=== PATIENT | female | born 1955 | race Caucasian/White ===

== ENCOUNTER 2016-11-26 23:37 | Inpatient (IN) | payer MEDICARE ==
[2016-11-26] MEDS ORDERED: NORMAL SALINE 1000 ML 1,000 ML IV ONE (23:43)
[2016-11-26] MEDS ORDERED: ONDANSETRON HCL INJ/PF 4 MG/2 ML SDV IV ONE (23:43)
--- NOTE | 2016-11-27 00:08 | ER Document Report ---
ED General - General Chief Complaint: Altered Mental Status Stated Complaint: ABDOMINAL PAIN Time Seen by Provider: 11/26/16 23:43 Cannot obtain history due to: Uncooperative, Altered mental status Notes: Patient is a 61 year old female who presents with altered mental status and vomiting. Patient is apparently been admitted to this hospital on 2 separate occasions for similar presentations often due to narcotic abuse and withdrawal. Patient herself is unable to provide any meaningful history. Her significant other at the bedside states that she has been eating increasingly less over the past several days and began having vomiting today. TRAVEL OUTSIDE OF THE [place] IN LAST 30 DAYS: No - Related Data Allergies/Adverse Reactions: No Known Allergies Allergy (Verified 01/23/16 15:51) Home Medications: Current Home Medications Buspirone HCl [Buspirone HCl] 15 mg PO TID 11/27/16 [History] Fluoxetine HCl [Fluoxetine HCl] 20 mg PO DAILY 11/27/16 [History] Meloxicam [Meloxicam] 15 mg PO DAILY 11/27/16 [History] Naloxone HCl [Narcan] 1 spray IN PRN PRN 11/27/16 [History] Oxycodone HCl [Oxycontin] 40 mg PO Q12H 11/27/16 [History] Oxycodone HCl/Acetaminophen [Oxycodone-Acetaminophen 10-325] 1 each PO DAILYP PRN 11/27/16 [History] Sertraline HCl [Sertraline HCl] 50 mg PO DAILY 11/27/16 [History] Past Medical History - General Information source: Patient - Social History Smoking Status: Never Smoker Frequency of alcohol use: None Drug Abuse: Prescription drugs Lives with: Family Family History: Reviewed & Not Pertinent, Hypertension Musculoskeltal Medical History: Reports Hx Arthritis - Chronic back pain, Reports Hx Fibromyalgia Psychiatric Medical History: Reports: Hx Anxiety, Hx Depression Past Surgical History: Reports: Hx Section - x2, Hx Orthopedic Surgery - cervical fusion - Immunizations Hx Diphtheria, Pertussis, Tetanus Vaccination: Yes Review of Systems - Review of Systems -: Yes ROS unobtainable due to patient's medical condition Physical Exam - Vital signs Vitals: Temp Pulse Resp BP Pulse Ox 98.7 F 84 21 H 143/85 H 99 11/26/16 23:56 11/26/16 23:56 11/26/16 23:56 11/26/16 23:56 11/26/16 23:56 Interpretation: Normal Notes: PHYSICAL EXAMINATION: GENERAL: Disheveled, in no acute distress HEAD: Atraumatic, normocephalic. EYES: Pupils equal round and reactive to light, extraocular movements intact, sclera anicteric, conjunctiva are normal. ENT: nares patent, oropharynx clear without exudates. Dry mucous membranes. NECK: Normal range of motion, supple without lymphadenopathy LUNGS: Breath sounds clear to auscultation bilaterally and equal. No wheezes rales or rhonchi. HEART: Regular rate and rhythm without murmurs ABDOMEN: Soft, nontender, normoactive bowel sounds. No guarding, no rebound. No masses appreciated. EXTREMITIES: Normal range of motion, no pitting or edema. No cyanosis. NEUROLOGICAL: No focal neurological deficits. Moves all extremities spontaneously and on command. PSYCH: Confused, not answering questions appropriately SKIN: Warm, Dry, normal turgor, no rashes or lesions noted. Course - Re-evaluation Re-evalutation: 11/27/16 00:06 Patient presents with altered mental status likely secondary to polysubstance abuse with withdrawal. Review of patient's [place] controlled substance database shows that each month patient received 60 40 mg OxyContin tablets, 30 oxycodone 10 mg tablets, 30 zolpidem 10 mg tablets as well as 83 Xanax 1 mg tablets. This means that any given day the patient is receiving a total of 80 mg of OxyContin, 10 mg of oxycodone, 10 mg of zolpidem as well as anywhere between 2- 3 mg of alprazolam. The indication for this is apparently chronic pain and anxiety. Patient also apparently has a history of urinary tract infections with similar presentations although given the absence of fever, tachycardia, it would be unlikely the patient would have a septic picture to explain her presentation today. Will obtain basic laboratories and reassess 11/27/16 02:30 Urinalysis is unremarkable the laboratories do demonstrate signs consistent with persistent vomiting including lobe bicarb as well as a hypokalemia. Her urine specific gravity is 1.03 also consistent with significant dehydration. Patient continues to have active vomiting here in the emergency department. A CT of the head was obtained to exclude an intracranial bleed as the etiology of her presentation today and is normal. I highly suspect that a large component of patient's presentation is either due to narcotic withdrawal or withdrawal from multiple substances. However, given her persistent vomiting and laboratory abnormalities she will require admission for IV hydration and electrolyte replacement. - Vital Signs Vital signs: Temp Pulse Resp BP Pulse Ox 98.7 F 76 20 140/72 H 95 11/26/16 23:56 11/27/16 03:00 11/27/16 03:00 11/27/16 03:00 11/27/16 03:00 - Laboratory Result Diagrams: 11/27/16 00:05 11/27/16 00:05 Laboratory results interpreted by me: 11/26/16 11/27/16 11/27/16 23:53 00:05 00:05 Seg Neutrophils % 82.0 H Lymphocytes % 11.0 L Sodium 145.5 H Potassium 2.9 L* Chloride 116 H Carbon Dioxide 15 L Creatinine 0.43 L Glucose 112 H Calcium 7.6 L Albumin 3.3 L Urine Protein 100 H Urine Ketones TRACE H Urine Blood SMALL H Urine Urobilinogen 2.0 H - Diagnostic Test Radiology reviewed: Reports reviewed Discharge - Discharge Clinical Impression: Benzodiazepine dependence, continuous, Opiate dependence, continuous Condition: Fair Disposition: ADMITTED INPATIENT Admitting Provider: [facility] Unit Admitted: [facility]
[2016-11-27 00:11] LABS: APPEARANCE,URINE CLOUDY; BILIRUBIN,URINE NEGATIVE (NEGATIVE); GLUCOSE, URINE NEGATIVE (NEGATIVE); KETONES,URINE TRACE mg/dL (NEGATIVE); LEUKOCYTE ESTERASE,URINE NEGATIVE (NEGATIVE); NITRITE,URINE NEGATIVE (NEGATIVE); PROTEIN,URINE 100 mg/dL (NEGATIVE)
[2016-11-27 00:18] LABS: ABSOLUTE LYMPHOCYTES (AUTO) 0.8 10^3/uL (0.5-4.7); ABSOLUTE MONOCYTES (AUTO) 0.4 10^3/uL (0.1-1.4); ABSOLUTE NEUT (AUTO) 5.6 10^3/uL (1.7-8.2); BASOPHILS % (AUTO) 0.6 % (0-2); HEMATOCRIT 44.5 % (36.0-47.0); HEMOGLOBIN 14.7 g/dL (12.0-15.5); HGB HCT DIFFERENCE -0.4; MEAN CORPUSCULAR HGB CONC 33.1 g/dL (32.0-36.0); MEAN CORPUSCULAR VOLUME 85 fl (80-97); MONOCYTES % (AUTO) 6.4 % (3-13); RED BLOOD COUNT 5.26 10^6/uL (3.72-5.28); RED CELL DISTRIBUTION WIDTH 13.8 % (11.5-14.0); WHITE BLOOD COUNT 6.8 10^3/uL (4.0-10.5)
[2016-11-27 00:50] LABS: ALANINE AMINOTRANSFERASE 35 U/L (9-52); ALBUMIN 3.3 g/dL (3.5-5.0); ALKALINE PHOSPHATASE 73 U/L (38-126); ANION GAP 15 (5-19); ASPARTATE AMINO TRANSFERASE 29 U/L (14-36); BILIRUBIN,DIRECT 0.3 mg/dL (0.0-0.4); BILIRUBIN,TOTAL 0.5 mg/dL (0.2-1.3); BLOOD UREA NITROGEN 15 mg/dL (7-20); CALCIUM 7.6 mg/dL (8.4-10.2); CARBON DIOXIDE 15 mmol/L (22-30); CHLORIDE 116 mmol/L (98-107); CREATININE RESULT 0.43 mg/dL (0.52-1.25); GLUCOSE 112 mg/dL (75-110); LIPASE 81.6 U/L (23-300); SODIUM 145.5 mmol/L (137-145); TOTAL PROTEIN 6.3 g/dL (6.3-8.2)
[2016-11-27 00:56] LABS: POTASSIUM 2.9 mmol/L (3.6-5.0)
--- NOTE | 2016-11-27 01:34 | RADIOLOGY REPORT (SQ) ---
EXAM DESCRIPTION: CT HEAD WITHOUT COMPLETED DATE/TIME: 11/27/2016 1:08 am REASON FOR STUDY: ams COMPARISON: None. TECHNIQUE: Axial images acquired through the brain without intravenous contrast. Images reviewed wi th bone, brain and subdural windows. Images stored on PACS. All CT scanners at this facility use dose modulation, iterative reconstruction, and/or weight based d osing when appropriate to reduce radiation dose to as low as reasonably achievable (ALARA). [facility]: Dose Right [facility]: CareDose [facility]: Dose Right [facility]: Teradose 4D [facility]: [employer] RADIATION DOSE: Up-to-date CT equipment and radiation dose reduction techniques were employed. CTDIv ol: 64.6 mGy. DLP: 1163 mGy-cm. mGy. LIMITATIONS: Motion artifact. FINDINGS: VENTRICLES: Normal size and contour. CEREBRUM: No masses. No hemorrhage. No midline shift. Normal johnson/white matter differentiation. N o evidence for acute infarction. CEREBELLUM: No masses. No hemorrhage. No alteration of density. No evidence for acute infarction. EXTRAAXIAL SPACES: No fluid collections. No masses. ORBITS AND GLOBE: No intra- or extraconal masses. Normal contour of globe without masses. CALVARIUM: No fracture. PARANASAL SINUSES: No fluid or mucosal thickening. SOFT TISSUES: No mass or hematoma. OTHER: No other significant finding. IMPRESSION: NORMAL BRAIN CT WITHOUT CONTRAST. TECHNICAL DOCUMENTATION: JOB ID: [id number] Quality ID # [id number]: Final reports with documentation of one or more dose reduction techniques (e.g., Au tomated exposure control, adjustment of the mA and/or kV according to patient size, use of iterative reconstruction technique) 2010 [employer]- All Rights Reserved
[2016-11-27] MEDS ORDERED: POTASSI CL 20 MEQ/50 ML RIDER 50 ML IV ONE (01:35)
[2016-11-27] MEDS: MAGNESIUM SULFATE/D5W 100 ML IV SCH ×2 (01:56→04:01)
[2016-11-27] MEDS ORDERED: ONDANSETRON HCL INJ/PF 4 MG/2 ML SDV IV ONE ×2 (02:17→12:30)
[2016-11-27] MEDS ORDERED: LORAZEPAM INJ 2 MG/1 ML VIAL IV ONE (03:04)
[2016-11-27 03:12] LABS: ADD ON TESTING BLD IN LAB ACKNOWLEDGE
[2016-11-27 03:23] LABS: MAGNESIUM 1.8 mg/dL (1.6-2.3)
[2016-11-27 03:26] LABS: ALCOHOL < 10 mg/dL (NONE DETECTED)
[2016-11-27 03:38] LABS: VENOUS BLOOD BASE EXCESS -1.1 mmol/L; VENOUS BLOOD HCO3 22.4 mmol/L (20-32); VENOUS BLOOD PCO2 33.7 mmHg (35-63); VENOUS BLOOD PH 7.44 (7.30-7.42)
[2016-11-27] MEDS ORDERED: POTASSI CL 20 MEQ/50 ML RIDER 50 ML IV SCH (05:00)
[2016-11-27] MEDS ORDERED: 1/2 NORMAL SALINE 1,000 ML IV PRN (05:46)
[2016-11-27 05:53] LABS: URINE BARBITURATES SCREEN NEGATIVE; URINE METHADONE SCREEN NEGATIVE; URINE OPIATES LOW UNCONFIRMED POSITIVE; URINE PHENCYCLIDINE SCREEN NEGATIVE
[2016-11-27] MEDS ORDERED: RINGERS SOLUTION,LACTATED 1,000 ML IV ONE (06:15)
[2016-11-27 06:26] LABS: ANION GAP 13 (5-19); BLOOD UREA NITROGEN 17 mg/dL (7-20); CALCIUM 9.2 mg/dL (8.4-10.2); CARBON DIOXIDE 19 mmol/L (22-30); CHLORIDE 110 mmol/L (98-107); GLUCOSE 118 mg/dL (75-110)
[2016-11-27 06:33] LABS: POTASSIUM 4.3 mmol/L (3.6-5.0)
[2016-11-27 06:34] LABS: ADD ON TESTING BLD IN LAB ACKNOWLEDGE
[2016-11-27] MEDS ORDERED: GLUCAGON,HUMAN RECOMB 1 MG INJ SUBCUT PRN (06:43)
[2016-11-27] MEDS ORDERED: DEXTROSE 40% GEL 15 GM TUBE PO PRN ×2 (06:43)
[2016-11-27] MEDS ORDERED: DEXTROSE 50%-WATER 25 GM/50 ML DISP.SYRIN IV PRN ×2 (06:43)
[2016-11-27 06:44] LABS: CREATINE KINASE 140 U/L (30-135)
[2016-11-27] MEDS ORDERED: ACYCLOVIR SODIUM INJ/PF 500 MG/10 ML SDV IV PRN (06:45)
[2016-11-27] MEDS ORDERED: VANCOMYCIN HCL 0 MG in DEXTROSE 5%-WATER 250 ML IV NR (06:45)
[2016-11-27] MEDS ORDERED: RIFAMPIN INJ 600 MG VIAL IV PRN (06:45)
[2016-11-27] MEDS ORDERED: AMPICILLIN SOD INJ 2 GM VIAL IV PRN ×2 (06:48→06:57)
[2016-11-27] MEDS ORDERED: ACETAMINOPHEN 650 MG SUPP.RECT PR PRN (06:49)
[2016-11-27 06:59] LABS: PROTHROMBIN TIME 13.6 SEC (11.4-15.4)
[2016-11-27 07:00] LABS: PARTIAL THROMBOPLASTIN TIME 26.6 SEC (23.5-35.8)
[2016-11-27] MEDS ORDERED: DEXAMETHASONE SOD PHOS INJ 10 MG/1 ML VIAL IV ONE (07:00)
[2016-11-27] MEDS ORDERED: VANCOMYCIN HCL INJ 1000 MG VIAL IV PRN (07:08)
[2016-11-27] MEDS ORDERED: VANCOMYCIN HCL 1,750 MG in DEXTROSE 5%-WATER 500 ML IV ONE (08:00)
[2016-11-27] MEDS: PROMETHAZINE HCL INJ 25 MG/1 ML VIAL IV PRN ×3 (09:53→20:29)
[2016-11-27] MEDS: HYDROMORPHONE HCL INJ/PF 2 MG/ML AMPULE IV PRN ×3 (09:54→18:01)
[2016-11-27] MEDS ORDERED: FLUOXETINE HCL 20 MG CAPSULE PO SCH (10:00)
[2016-11-27] MEDS ORDERED: RIFAMPIN 600 MG in NORMAL SALINE 500 ML IV SCH (10:00)
[2016-11-27] MEDS ORDERED: AMPICILLIN SODIUM 2 GM in NORMAL SALINE 100 ML IV SCH (10:00)
[2016-11-27] MEDS ORDERED: SERTRALINE HCL 50 MG TABLET PO SCH (10:00)
[2016-11-27] MEDS ORDERED: ACYCLOVIR SODIUM IV SCH (10:00)
[2016-11-27] MEDS ORDERED: NORMAL SALINE IV SCH (10:00)
--- NOTE | 2016-11-27 10:08 | PDOC H&P ---
History of Present Illness Admission Date/PCP: 11/27/16 06:43 Patient complains of: ams, n/v History of Present Illness: TELLO KAHN is a 61 year old female with chronic pain syndrome, requiring chronic opioid use, along with chronic benzodiazepine use, who presents to the emergency room for evaluation of above complaints. Patient has been discussed with emergency room physician who evaluated the patient. Patient is globally disoriented and is able to provide no history whatsoever in terms of acute or chronic events, review of systems, personal habits, family history, etc. No family present. A "special" male friend is present at her side, but can provide little information about acute events, and virtually nothing about chronic health issues. Old inpatient records are reviewed. Since Tuesday, patient has noted persistent nausea, along with frequently falling asleep. Poor p.o. intake over this time span. Over the last 24 hours or so, as best can be determined, she has had intermittent episodes of vomiting. Possibly diarrhea. ER physician notes related to her prescription drug use, and its suspected amounts, reviewed. No further information available this point in time. Was seen in consultation in the emergency room on 05/26/2016 for evaluation of nausea and vomiting. Opiate withdrawal was felt at least partly responsible for her symptoms. Admission was not felt warranted. Consult has been reviewed. Hospitalized 01/25 through 01/27/2016 with final diagnoses including urinary tract infection, intractable nausea and vomiting, chronic pain syndrome requiring chronic opioid use, and chronic anxiolytic use. History and physical and discharge summary have been reviewed. Laboratory results are listed in [facility] and are reviewed. X-ray summary results are listed below, with full report(s) reviewed. . EKG reviewed. Social history/personal habits: Patient cannot provide any information available at this point in time. No known drug allergies. Home medications initially autopopulated into [employer] may not accurately reflect patient's true medications, dosages, and/or frequencies. tar processing technician to reconcile medications. Unfortunately, Patient cannot provide any information related to medications/ dosages/frequencies. REVIEW OF SYSTEMS: See history and present illness. No further information available this point in time. PHYSICAL EXAMINATION: 5 feet 7 inches tall. 84.2 kg. BMI 29.1 kg/m. Blood pressure 149/80. Pulse 93 and regular. 96% saturation on room air. Respirations are 21 and unlabored. Temperature 98.1. Slightly overweight otherwise well-nourished well-developed though chronically ill-appearing female who appears a number of years older than her stated age. Somnolent. Does awaken slightly when spoken to. Denies pain. Intermittent brief episodes of dry heaves. No actual emesis. Occasional moaning, but once again denies pain. Maintaining airway well. Female emergency room nurse Eleanor is present. Male "special friend" is present. Skin is warm and dry. No grossly obvious evidence of rash in areas of skin examined. No subcutaneous nodules palpated. ENT: Hearing grossly normal to normal conversation. No mckeon sign. Eyes: No scleral icterus. Pupils equal and reactive to light at 7-8 mm. [place] conjunctivae. No raccoon eyes. Neck is nontender to palpation. Midline trachea. No palpable thyroid nodule mass enlargement or tenderness. Lymphatic: No palpable cervical or clavicular nodes. Neck and lymphatic exams limited by patient body habitus. Psychiatric: Cannot be adequately evaluated due to her current status. See above comments. Lungs: Auscultation reveals clear and equal breath sounds bilaterally. No use of accessory respiratory muscles. Cardiovascular: Heart regular rate and rhythm, without gallop murmur or rub. No carotid or abdominal aortic bruits. No ankle or pedal edema. Faintly palpable dorsalis pedis pulses. Abdomen:soft slightly distended with occasional bowel sounds. Barely detectable discomfort on palpation of the abdomen; certainly no evidence of guarding or peritoneal signs. Unable to adequately evaluate abdomen for masses or organomegaly due to distention. Extremities: Hands and feet are warm and dry. No calf tenderness to compression. No grossly obvious visual evidence of calf swelling. Gentle manipulation of upper and lower extremities fails to reveal any obvious evidence of injury or instability to involved major joints, although lower extremity exam, in terms of range of motion, somewhat limited due to slight bilateral symmetric muscle rigidity. Certainly no evidence of "lead pipe" rigidity. Neurologic: Cranial Nerves and light touch intact cannot be adequately evaluated due to her current status.. Patellar reflexes brisk and symmetric. Absent Babinski. Brisk bilateral symmetric ankle clonus. No nystagmus. Hand sugar coating hand 4/5 and symmetric. Does not seem to understand request for examination of biceps and triceps function. Certainly no evidence of upper extremity flaccidity. Past Medical History Past Medical History: Information available only from old records; patient not able to provide any information. Musculoskeltal Medical History: Reports: Arthritis - Chronic back pain, Fibromyalgia Psychiatric Medical History: Reports: Depression Past Surgical History Past Surgical History: Patient unable to provide any information herself. Past Surgical History: Reports: Section - x2, Orthopedic Surgery - cervical fusion Social History Information Source: Friend, Emergency Med Personnel, [facility] Records Lives with: Family Smoking Status: Never Smoker Frequency of Alcohol Use: None Hx Recreational Drug Use: No - Uncertain at this point in time. Drugs: None - Uncertain at this point in time. Hx Prescription Drug Abuse: Yes - Advance Directive Resuscitation Status: Full Code Surrogate healthcare decision maker:: Uncertain at this point in time. Family History Family History: Reviewed & Not Pertinent, Hypertension Parental Family History Reviewed: No - Patient cannot provide any information. Children Family History Reviewed: No - Patient cannot provide any information. Sibling(s) Family History Reviewed.: No - Patient cannot provide any information. Medication/Allergy Home Medications: RX: Gabapentin 800 mg PO Q6 05/26/16 RX: Zolpidem Tartrate 10 mg PO QHS 05/26/16 RX: Buspirone HCl 15 mg PO TID 11/27/16 RX: Naloxone HCl [Narcan] 1 spray IN PRN PRN 11/27/16 RX: Lorazepam [Ativan 1 mg Tablet] 1 mg PO Q8HP PRN #10 tablet 12/02/16 RX: Oxycodone HCl [Oxy-Ir 5 mg Tablet] 5 mg PO Q4HP PRN #10 tablet 12/02/16 RX: Oxycodone HCl [Oxycontin Sr 10 mg Tablet] 20 mg PO Q12 #10 tab.sr.12h RX: Potassium Chloride [Klor-Con 10 Meq Tablet.sa] 20 meq PO DAILY #7 tablet.sa 12/02/16 Allergies/Adverse Reactions: No Known Allergies Allergy (Verified 01/23/16 15:51) Physical Exam Vital Signs: Temp Pulse Resp BP Pulse Ox 98.1 F 84 15 148/77 H 96 11/27/16 05:53 11/27/16 06:00 11/27/16 09:01 11/27/16 09:00 11/27/16 09:01 Intake & Output 11/26/16 11/27/16 11/28/16 00:59 00:59 00:59 Output Total 600 Balance -600 Results Impressions: Head CT 11/27/16 00:54 IMPRESSION: NORMAL BRAIN CT WITHOUT CONTRAST. Assessment & Plan - Diagnosis (1) Acidosis Is this a current diagnosis for this admission?: YesPlan: Likely due to an element of dehydration. IV fluids. Follow-up chemistry. (2) Acute encephalopathy Is this a current diagnosis for this admission?: YesPlan: Uncertain specific etiology at this point in time, but suspect at least an element of prescription medication withdrawal. At 6:15 AM morning of November,, extensive telephone conversation with Dr. Carreno, on-call underground electrician at [place] poison control. Patient discussed in detail. Dr. Denny felt her overall clinical picture was not completely consistent with medication withdrawal or serotonin syndrome, and even less likely neuroleptic malignant syndrome. He agreed with treatment so far. Concern for an infectious component involving the central nervous system. Lumbar puncture recommended. Empiric antibiotic regimen along with dexamethasone instituted. Due to her overall clinical picture, and uncertainty as to the exact etiology of this picture, will admit to intensive care unit. Knee high SCDs for DVT prophylaxis; with plans for lumbar puncture, will forego Lovenox or heparin at this point in time. Patient discussed in detail with day hospitalist team. Time spent in evaluation and management of patient: 85 critical-care minutes. (3) Benzodiazepine dependence, continuous Is this a current diagnosis for this admission?: Yes (4) Opiate dependence, continuous Is this a current diagnosis for this admission?: Yes (5) Nausea & vomiting Qualifiers: Vomiting type: unspecified Vomiting Intractability: non-intractable Qualified Code(s): R11.2 - Nausea with vomiting, unspecified Is this a current diagnosis for this admission?: Yes - Inpatient Certification Based on my medical assessment, after consideration of the patient's comorbidities, presenting symptoms, or acuity I expect that the services needed warrant INPATIENT care.: Yes I certify that my determination is in accordance with my understanding of Medicare's requirements for reasonable and necessary INPATIENT services [42 CFR 412.3e].: Yes Medical Necessity: Need Close Monitoring Due to Risk of Patient Decompensation, Need For IV Fluids, Need For Continuous Telemetry Monitoring, Risk of Diagnosis Which Will Require Inpatient Eval/Care/Monitoring Post Hospital Care: D/C or Transfer Summary
[2016-11-27] MEDS: CEFTRIAXONE 2 GM/D5W RTU 2 GM/50 ML RTUPB IV SCH (10:50)
[2016-11-27] MEDS ORDERED: DEXAMETHASONE SOD PHOS INJ 10 MG/1 ML VIAL IV SCH (12:00)
[2016-11-27] MEDS: NORMAL SALINE 1000 ML 1,000 ML IV PRN ×2 (12:04→23:16)
[2016-11-27] MEDS ORDERED: DIAZEPAM INJ 10 MG/2 ML DISP.SYRIN IV ONE (12:30)
[2016-11-27] MEDS ORDERED: METOCLOPRAMIDE HCL INJ/PF 10 MG/2 ML SDV IV ONE (12:30)
[2016-11-27] MEDS: ONDANSETRON HCL INJ/PF 4 MG/2 ML SDV IV SCH ×3 (12:48→23:15)
--- NOTE | 2016-11-27 13:42 | EKG REPORT ---
SEVERITY:- BORDERLINE ECG - SINUS RHYTHM BORDERLINE T ABNORMALITIES, ANTERIOR LEADS : Confirmed by: Mamadou Dupree 27-Nov-2016 13:41:22
[2016-11-27] MEDS: DIAZEPAM INJ 10 MG/2 ML DISP.SYRIN IV SCH ×2 (15:00→23:15)
[2016-11-27] MEDS: NORMAL SALINE IV SCH ×2 (15:02→23:15)
[2016-11-27] MEDS: ACYCLOVIR SODIUM IV SCH ×2 (15:02→23:15)
--- NOTE | 2016-11-27 16:15 | RADIOLOGY REPORT (SQ) ---
EXAM DESCRIPTION: MRI HEAD COMBO COMPLETED DATE/TIME: 11/27/2016 2:50 pm REASON FOR STUDY: neurologic chgs; eval for CVA or mass/encephalitis COMPARISON: CT from earlier. This exam qualifies as a separate session for this patient's imaging care and occurred 2 to 3 hours after the previous session of cross-sectional imaging care. TECHNIQUE: Multiplanar imaging includes noncontrasted T1, T2, FLAIR, diffusion with ADC map and post gadolinium contrast T1 sequences. Images stored on PACS. CONTRAST TYPE AND DOSE: 15 mL Multihance. RENAL FUNCTION: GFR > 60. LIMITATIONS: None. FINDINGS: ANATOMY: No anomalies. Normal vascular flow voids. Pituitary fossa normal. CSF SPACES: Normal in size and contour. No hemorrhage. CEREBRUM: Sulci and gyri normal in size and contour. Normal white matter signal on FLAIR imaging. No evidence of hemorrhage, mass, or extraaxial fluid collection. No abnormal enhancement post contrast. POSTERIOR FOSSA: No signal alteration. No hemorrhage. No edema, masses, or mass effect. Internal earnestine tory canals, cerebellopontine angles, mastoids normal. No enhancing lesions. No abnormal enhancement post contrast. DIFFUSION IMAGING: Negative for acute or subacute infarction. ORBITS: No masses. Globes normal. PARANASAL SINUSES: No fluid levels. Mucosa normal. OTHER: No other significant finding. IMPRESSION: NORMAL MRI OF THE BRAIN WITHOUT AND WITH INTRAVENOUS GADOLINIUM CONTRAST. TECHNICAL DOCUMENTATION: JOB ID: [id number] [employer]- All Rights Reserved
[2016-11-27] MEDS: METOCLOPRAMIDE HCL INJ/PF 10 MG/2 ML SDV IV SCH ×2 (18:02→23:15)
[2016-11-27] MEDS: VANCOMYCIN HCL 1,250 MG in DEXTROSE 5%-WATER 250 ML IV SCH (23:14)
[2016-11-27] MEDS ORDERED: CEFTRIAXONE 2 GM/D5W RTU 2 GM/50 ML RTUPB IV ONE (23:42)
[2016-11-28] MEDS: PROMETHAZINE HCL INJ 25 MG/1 ML VIAL IV PRN ×6 (00:21→23:56)
[2016-11-28] MEDS: CEFTRIAXONE 2 GM/D5W RTU 2 GM/50 ML RTUPB IV SCH (00:43)
[2016-11-28] MEDS: HYDROMORPHONE HCL INJ/PF 2 MG/ML AMPULE IV PRN ×4 (02:42→19:45)
[2016-11-28 05:12] LABS: ABSOLUTE BASOPHILS # (AUTO) 0.1 10^3/uL (0.0-0.2); ABSOLUTE LYMPHOCYTES (AUTO) 1.1 10^3/uL (0.5-4.7); ABSOLUTE MONOCYTES (AUTO) 1.1 10^3/uL (0.1-1.4); ABSOLUTE NEUT (AUTO) 8.5 10^3/uL (1.7-8.2); BASOPHILS % (AUTO) 0.8 % (0-2); HEMATOCRIT 39.9 % (36.0-47.0); HEMOGLOBIN 13.2 g/dL (12.0-15.5); HGB HCT DIFFERENCE -0.3; LYMPHOCYTES % (AUTO) 10.5 % (13-45); MEAN CORPUSCULAR HGB CONC 33.1 g/dL (32.0-36.0); MEAN CORPUSCULAR VOLUME 85 fl (80-97); MONOCYTES % (AUTO) 10.2 % (3-13); RED BLOOD COUNT 4.72 10^6/uL (3.72-5.28); RED CELL DISTRIBUTION WIDTH 14.3 % (11.5-14.0); SEGMENTED NEUTROPHILS % (AUTO) 78.5 % (42-78); WHITE BLOOD COUNT 10.8 10^3/uL (4.0-10.5)
[2016-11-28] MEDS: NORMAL SALINE IV SCH ×2 (05:17→14:11)
[2016-11-28] MEDS: ACYCLOVIR SODIUM IV SCH ×2 (05:17→14:11)
[2016-11-28] MEDS: DIAZEPAM INJ 10 MG/2 ML DISP.SYRIN IV SCH ×3 (05:17→22:31)
[2016-11-28] MEDS: METOCLOPRAMIDE HCL INJ/PF 10 MG/2 ML SDV IV SCH (05:18)
[2016-11-28] MEDS: ONDANSETRON HCL INJ/PF 4 MG/2 ML SDV IV SCH ×3 (05:18→22:31)
[2016-11-28 05:29] LABS: ALANINE AMINOTRANSFERASE 39 U/L (9-52); ALBUMIN 3.9 g/dL (3.5-5.0); ALKALINE PHOSPHATASE 78 U/L (38-126); ANION GAP 11 (5-19); ASPARTATE AMINO TRANSFERASE 30 U/L (14-36); BILIRUBIN,DIRECT 0.3 mg/dL (0.0-0.4); BILIRUBIN,TOTAL 0.5 mg/dL (0.2-1.3); BLOOD UREA NITROGEN 13 mg/dL (7-20); CALCIUM 9.1 mg/dL (8.4-10.2); CARBON DIOXIDE 21 mmol/L (22-30); CHLORIDE 109 mmol/L (98-107); GLUCOSE 105 mg/dL (75-110); POTASSIUM 3.8 mmol/L (3.6-5.0); SODIUM 141.2 mmol/L (137-145); TOTAL PROTEIN 6.8 g/dL (6.3-8.2)
[2016-11-28] MEDS ORDERED: PROCHLORPERAZINE MALEATE 10 MG TABLET PO ONE (09:30)
[2016-11-28] MEDS ORDERED: PROMETHAZINE HCL 25 MG SUPP.RECT PR ONE (09:30)
[2016-11-28] MEDS: VANCOMYCIN HCL 1,250 MG in DEXTROSE 5%-WATER 250 ML IV SCH (09:33)
[2016-11-28] MEDS ORDERED: ONDANSETRON HCL INJ/PF 4 MG/2 ML SDV IV ONE (10:00)
[2016-11-28] MEDS ORDERED: CEFTRIAXONE 2 GM/D5W RTU 2 GM/50 ML RTUPB IV SCH ×2 (10:00→13:00)
[2016-11-28 12:03] LABS: APPEARANCE ALL TUBES CLEAR
--- NOTE | 2016-11-28 12:05 | RADIOLOGY REPORT (SQ) ---
EXAM DESCRIPTION: LUMBAR PUNCTURE COMPLETED DATE/TIME: 11/28/2016 11:55 am REASON FOR STUDY: neurologic chg, poss meningitis, encephalitis COMPARISON: None. FLUOROSCOPY TIME: 14 seconds 1 images saved to PACS. TECHNIQUE: Fluoroscopic guided lumbar puncture. LIMITATIONS: None. PROCEDURE: After written consent and assessment were obtained, the patient was brought into the fluo roscopy room and placed prone on the table. The patient's lower back was prepped in a sterile fashio n and an entry site was selected under live fluoroscopic guidance. The entry site was anesthetized wi th 1% lidocaine. A 22 gauge needle was advanced through the skin and into the thecal sac at the level of L3-L4. After approximately 7 ml was drained, the needle was removed and a sterile bandage was gwendolny izabela of the site. Specimens were sent to the lab for testing. A fluoroscopic spot image was saved to PACS confirming level access. FINDINGS: Clear CSF IMPRESSION: Lumbar puncture under fluoroscopy. No immediate complication. COMMENT: Patient medication list reviewed: Yes- Quality ID# [id number]:Eligible professional attests to doc umenting in the medical record they obtained, updated, or reviewed the patient's current medications. . Quality ID 145: Final reports for procedures using fluoroscopy that document radiation exposure faiza danii, or exposure time and number of fluorographic images (if radiation exposure indices are not avail able) TECHNICAL DOCUMENTATION: JOB ID: [id number] [employer]- All Rights Reserved
[2016-11-28 12:19] LABS: GLUCOSE,CSF 64 mg/dL (40-70)
[2016-11-28 12:20] LABS: CSF CULTURED REQUIRED CSF CULTURE ORDERED (CSFY); H. INFLUENZAE TYPE B AG NEGATIVE (NEGATIVE); S. PNEUMONIAE AG NEGATIVE (NEGATIVE); STREP. GROUP B AG NEGATIVE (NEGATIVE)
[2016-11-28 12:37] LABS: RBC SIDE 1 5
[2016-11-28 12:38] LABS: RBC AVERAGE 4.5; RBC DILUENT USED NONE USED; RBC DILUTION FACTOR 1; RBC SIDE 2 4; TOTAL RBC SQUARES COUNTED 225
[2016-11-28 12:39] LABS: WHITE BLOOD CELL,CSF 3 /uL (0-5)
--- NOTE | 2016-11-28 13:42 | PDOC PROGRESS REPORT ---
Subjective Progress Note for:: 11/28/16 Subjective:: reason for visit: f/u serotonin syndrome, vomiting, encephalopathy hospital course: per H&P "TELLO KAHN is a 61 year old female with chronic pain syndrome, requiring chronic opioid use, along with chronic benzodiazepine use, who presents to the emergency room for evaluation of above complaints. Patient is globally disoriented and is able to provide no history whatsoever in terms of acute or chronic events, review of systems, personal habits, family history, etc. No family present. A "special" male friend is present at her side, but can provide little information about acute events, and virtually nothing about chronic health issues. Old inpatient records are reviewed. Since Tuesday, patient is noted persistent nausea, along with frequently falling asleep. Poor p.o. intake over this time span. Over the last 24 hours or so, as best can be determined, she has had intermittent episodes of vomiting. Possibly diarrhea. ER physician notes related to her prescription drug use, and its suspected amounts, reviewed. No further information available this point in time. Was seen in consultation in the emergency room on 05/26/2016 for evaluation of nausea and vomiting. Opiate withdrawal was felt at least partly responsible for her symptoms. Admission was not felt warranted. Consult has been reviewed. Hospitalized 01/25 through 01/27/2016 with final diagnoses including urinary tract infection, intractable nausea and vomiting, chronic pain syndrome requiring chronic opioid use, and chronic anxiolytic use. History and physical and discharge summary have been reviewed." I strongly suspect serotonin syndrome on the basis of dual SSRI use at home and clinical findings of lower ext clonus, muscle rigidity, hyperreflexia, diaphoresis, mental status change and severe projectile vomiting. MRI brain is clean of pathologic process. Labs are unremarkable aside from mild metabolic acidosis. LP performed and shows only a couple WBCs, glucose normal, total protein slightly high at 66 and Gm stain/culture still pending. her retching and vomiting are the most prominent and disturbing symptom at present, refractory to multidrug regimen. she is more alert and talkative and more appropriate for staff and family at bedside. ROS: difficult to ascertain due to persistent vomiting and retching during my exam. she denies chest pain, BECKER, N/T but c/o abdominal wall pain, weakness, myalgias and confusion. all systems reviewed, see above, remaining systems negative. Physical Exam Vital Signs: Temp Pulse Resp BP Pulse Ox 99.1 F 70 20 127/70 H 95 11/28/16 08:43 11/28/16 08:43 11/28/16 08:43 11/28/16 08:43 11/28/16 08:43 Intake & Output 11/27/16 11/28/16 11/29/16 06:59 06:59 06:59 Intake Total 2375 Output Total 2625 Balance -250 Weight 93.2 kg General appearance: PRESENT: mild distress, obese, well-developed, well- nourished Head exam: PRESENT: atraumatic, normocephalic Eye exam: PRESENT: EOMI. ABSENT: conjunctival injection, nystagmus, scleral icterus Neck exam: PRESENT: full ROM. ABSENT: meningismus, tenderness, tracheal deviation Respiratory exam: PRESENT: clear to auscultation ana. ABSENT: accessory muscle use, unlabored Cardiovascular exam: PRESENT: RRR. ABSENT: systolic murmur, tachycardia Pulses: PRESENT: normal radial pulses, normal dorsalis pedis pul GI/Abdominal exam: PRESENT: normal bowel sounds, soft, tenderness - wall tender to palpation and worse with movement Extremities exam: ABSENT: calf tenderness, pedal edema Musculoskeletal exam: PRESENT: full ROM, normal inspection Neurological exam: PRESENT: alert, awake, oriented to person, oriented to place , other - profound clonus at bilat ankles. ABSENT: oriented to time, oriented to situation, reflexes normal - hyperreflexia patella with thigh fasciculations after testing Psychiatric exam: PRESENT: anxious, appropriate affect, normal mood Focused psych exam: ABSENT: pressured speech, psychomotor agitation Skin exam: PRESENT: warm - moist and pale Results Laboratory Results: 11/28/16 04:36 11/28/16 04:36 11/28/16 11/28/16 11/28/16 04:36 04:36 11:08 WBC 10.8 H RBC 4.72 Hgb 13.2 Hct 39.9 MCV 85 MCH 28.0 MCHC 33.1 RDW 14.3 H Plt Count 253 Seg Neutrophils % 78.5 H Lymphocytes % 10.5 L Monocytes % 10.2 Eosinophils % 0.0 Basophils % 0.8 Absolute Neutrophils 8.5 H Absolute Lymphocytes 1.1 Absolute Monocytes 1.1 Absolute Eosinophils 0.0 Absolute Basophils 0.1 Sodium 141.2 Potassium 3.8 Chloride 109 H Carbon Dioxide 21 L Anion Gap 11 BUN 13 Creatinine 0.70 Est GFR ( Amer) > 60 Est GFR (Non-Af Amer) > 60 Glucose 105 Calcium 9.1 Total Bilirubin 0.5 AST 30 ALT 39 Alkaline Phosphatase 78 Total Protein 6.8 Albumin 3.9 Fluid Tube Number 3 CSF Volume 6.1 CSF Appearance CLEAR CSF Color COLORLESS CSF WBC 3 CSF RBC 5 CSF Comment CSF Glucose CSF Total Protein 11/28/16 11/28/16 11:08 11:08 WBC RBC Hgb Hct MCV MCH MCHC RDW Plt Count Seg Neutrophils % Lymphocytes % Monocytes % Eosinophils % Basophils % Absolute Neutrophils Absolute Lymphocytes Absolute Monocytes Absolute Eosinophils Absolute Basophils Sodium Potassium Chloride Carbon Dioxide Anion Gap BUN Creatinine Est GFR ( Amer) Est GFR (Non-Af Amer) Glucose Calcium Total Bilirubin AST ALT Alkaline Phosphatase Total Protein Albumin Fluid Tube Number CSF Volume CSF Appearance CSF Color CSF WBC CSF RBC CSF Comment CSF CULTURE ORDERED CSF Glucose 64 CSF Total Protein 66 H Impressions: Head MRI 11/27/16 00:00 IMPRESSION: NORMAL MRI OF THE BRAIN WITHOUT AND WITH INTRAVENOUS GADOLINIUM CONTRAST. Head CT 11/27/16 00:54 IMPRESSION: NORMAL BRAIN CT WITHOUT CONTRAST. Lumbar Puncture 11/28/16 00:00 IMPRESSION: Lumbar puncture under fluoroscopy. No immediate complication. Status: Imported from PACS Assessment & Plan - Diagnosis (1) Serotonin neurotoxicity Qualifiers: Encounter type: initial encounter Injury intent: accidental or unintentional Qualified Code(s): T50.991A - Poisoning by other drugs, medicaments and biological substances, accidental (unintentional), initial encounter Is this a current diagnosis for this admission?: YesPlan: I strongly suspect serotonin syndrome. treatment is benzo's and supportive. hyperemesis is problematic, will add compazine and consider cyproheptadine, otherwise continue current care (2) Acute encephalopathy Is this a current diagnosis for this admission?: YesPlan: 2/2 above; continue eval as above. if Gm stain of CSF negative then stop abx. (3) Opiate dependence, continuous Is this a current diagnosis for this admission?: YesPlan: continue dilaudid to eliminate this as confounder (4) Depression Qualifiers: Depression Type: major depressive disorder Major depression recurrence : recurrent Active/Remission status: remission status unspecified Qualified Code(s): F33.9 - Major depressive disorder, recurrent, unspecified Is this a current diagnosis for this admission?: YesPlan: hold SSRI's, continue treat with benzos for now (5) Fibromyalgia Is this a current diagnosis for this admission?: YesPlan: complicates her exam. - Time Time Spent with patient: 35 or more minutes Medications reviewed and adjusted accordingly: Yes
[2016-11-28] MEDS: NORMAL SALINE 1000 ML 1,000 ML IV PRN (14:13)
[2016-11-29] MEDS: ONDANSETRON HCL INJ/PF 4 MG/2 ML SDV IV SCH ×4 (03:25→21:20)
[2016-11-29] MEDS: NORMAL SALINE 1000 ML 1,000 ML IV PRN ×3 (03:43→21:19)
[2016-11-29 04:55] LABS: ABSOLUTE BASOPHILS # (AUTO) 0.1 10^3/uL (0.0-0.2); ABSOLUTE LYMPHOCYTES (AUTO) 1.1 10^3/uL (0.5-4.7); ABSOLUTE MONOCYTES (AUTO) 0.8 10^3/uL (0.1-1.4); ABSOLUTE NEUT (AUTO) 7.9 10^3/uL (1.7-8.2); BASOPHILS % (AUTO) 0.8 % (0-2); EOSINOPHILS % (AUTO) 0.1 % (0-6); HEMATOCRIT 41.7 % (36.0-47.0); HEMOGLOBIN 13.9 g/dL (12.0-15.5); LYMPHOCYTES % (AUTO) 10.7 % (13-45); MEAN CORPUSCULAR HEMOGLOBIN 27.8 pg (27.0-33.4); MEAN CORPUSCULAR HGB CONC 33.2 g/dL (32.0-36.0); MEAN CORPUSCULAR VOLUME 84 fl (80-97); MONOCYTES % (AUTO) 8.2 % (3-13); SEGMENTED NEUTROPHILS % (AUTO) 80.2 % (42-78); WHITE BLOOD COUNT 9.9 10^3/uL (4.0-10.5)
[2016-11-29 05:22] LABS: ALANINE AMINOTRANSFERASE 45 U/L (9-52); ALKALINE PHOSPHATASE 84 U/L (38-126); AMYLASE 89 U/L (30-110); ANION GAP 12 (5-19); ASPARTATE AMINO TRANSFERASE 33 U/L (14-36); BILIRUBIN,DIRECT 0.3 mg/dL (0.0-0.4); BILIRUBIN,TOTAL 0.8 mg/dL (0.2-1.3); BLOOD UREA NITROGEN 13 mg/dL (7-20); CARBON DIOXIDE 22 mmol/L (22-30); CHLORIDE 107 mmol/L (98-107); CREATININE RESULT 0.64 mg/dL (0.52-1.25); GLUCOSE 102 mg/dL (75-110); LIPASE 500.2 U/L (23-300); MAGNESIUM 2.2 mg/dL (1.6-2.3); PHOSPHORUS 3.7 mg/dL (2.5-4.5); POTASSIUM 3.4 mmol/L (3.6-5.0); SODIUM 140.8 mmol/L (137-145)
[2016-11-29] MEDS: DIAZEPAM INJ 10 MG/2 ML DISP.SYRIN IV SCH ×2 (05:41→14:30)
[2016-11-29] MEDS: PROMETHAZINE HCL INJ 25 MG/1 ML VIAL IV PRN (05:42)
[2016-11-29] MEDS ORDERED: PROCHLORPERAZINE MALEATE 10 MG TABLET PO ONE (08:30)
--- NOTE | 2016-11-29 09:45 | RADIOLOGY REPORT (SQ) ---
EXAM DESCRIPTION: CT ABD/PELVIS WITH IV ONLY COMPLETED DATE/TIME: 11/29/2016 9:18 am REASON FOR STUDY: pancreatitis COMPARISON: 01/23/2016 TECHNIQUE: CT scan of the abdomen and pelvis performed using helical scanning technique with dynamic intravenous contrast injection. No oral contrast. Images reviewed with lung, soft tissue, and bone windows. Reconstructed coronal and sagittal MPR images reviewed. Delayed images for evaluation of the urinary system also acquired. All images stored on PACS. All CT scanners at this facility use dose modulation, iterative reconstruction, and/or weight based d osing when appropriate to reduce radiation dose to as low as reasonably achievable (ALARA). [facility]: Dose Right [facility]: CareDose [facility]: Dose Right [facility]: Teradose 4D [facility]: GridCure CONTRAST TYPE AND DOSE: contrast/concentration: Isovue mg/ml; Total Contrast Delivered: 100.0 ml; T otal Saline Delivered: 59.3 ml RENAL FUNCTION: Creatinine 0.64 RADIATION DOSE: Up-to-date CT equipment and radiation dose reduction techniques were employed. CTDIv ol: 13.0 - 15.2 mGy. DLP: 1510 mGy-cm.. LIMITATIONS: None. FINDINGS: LOWER CHEST: No significant findings. No nodules or infiltrates. Minimal atelectasis or s carring. LIVER: Mild fatty change. Small stable less than 1 cm low density areas either small cysts or areas of focally greater fatty change. Normal size. No suspicious masses. No dilated ducts. SPLEEN: Normal size. No focal lesions. PANCREAS: No masses. No significant calcifications. No adjacent inflammation or peripancreatic fluid collections. Pancreatic duct not dilated. GALLBLADDER: No identified stones by CT criteria. No inflammatory changes to suggest cholecystitis. ADRENAL GLANDS: No significant masses or asymmetry. RIGHT KIDNEY AND URETER: No solid masses. No significant calcifications. No hydronephrosis or hyd roureter. LEFT KIDNEY AND URETER: Less than 1 cm cyst. No solid masses. No significant calcifications. No hydronephrosis or hydroureter. AORTA AND VESSELS: No aneurysm. No dissection. Renal arteries, SMA, celiac without stenosis. RETROPERITONEUM: No retroperitoneal adenopathy, hemorrhage or masses. BOWEL AND PERITONEAL CAVITY: No masses or inflammatory changes. No free fluid or peritoneal masses. APPENDIX: Normal. PELVIS: No mass or free fluid. Normal bladder. Salazar catheter in the bladder. ABDOMINAL WALL: Small fat containing umbilical hernia not felt to be significant. BONES: Severe degenerative changes involving the lumbar spine. OTHER: No other significant finding. IMPRESSION: 1. No acute abnormality. No radiographic evidence of pancreatitis. 2. Mild fatty change involving the liver. TECHNICAL DOCUMENTATION: JOB ID: [id number] Quality ID # [id number]: Final reports with documentation of one or more dose reduction techniques (e.g., Au tomated exposure control, adjustment of the mA and/or kV according to patient size, use of iterative reconstruction technique) 2010 [employer]- All Rights Reserved
[2016-11-29] MEDS: PROMETHAZINE HCL 25 MG SUPP.RECT PR PRN (11:20)
--- NOTE | 2016-11-29 13:37 | PDOC PROGRESS REPORT ---
Subjective Progress Note for:: 11/29/16 Subjective:: reason for visit: f/u serotonin syndrome, vomiting, encephalopathy hospital course: per H&P "TELLO KAHN is a 61 year old female with chronic pain syndrome, requiring chronic opioid use, along with chronic benzodiazepine use, who presents to the emergency room for evaluation of above complaints. Patient is globally disoriented and is able to provide no history whatsoever in terms of acute or chronic events, review of systems, personal habits, family history, etc. No family present. A "special" male friend is present at her side, but can provide little information about acute events, and virtually nothing about chronic health issues. Old inpatient records are reviewed. Since Tuesday, patient is noted persistent nausea, along with frequently falling asleep. Poor p.o. intake over this time span. Over the last 24 hours or so, as best can be determined, she has had intermittent episodes of vomiting. Possibly diarrhea. ER physician notes related to her prescription drug use, and its suspected amounts, reviewed. No further information available this point in time. Was seen in consultation in the emergency room on 05/26/2016 for evaluation of nausea and vomiting. Opiate withdrawal was felt at least partly responsible for her symptoms. Admission was not felt warranted. Consult has been reviewed. Hospitalized 01/25 through 01/27/2016 with final diagnoses including urinary tract infection, intractable nausea and vomiting, chronic pain syndrome requiring chronic opioid use, and chronic anxiolytic use. History and physical and discharge summary have been reviewed." I strongly suspect serotonin syndrome on the basis of dual SSRI use at home and clinical findings of lower ext clonus, muscle rigidity, hyperreflexia, diaphoresis, mental status change and severe projectile vomiting. MRI brain is clean of pathologic process. Labs are unremarkable aside from mild metabolic acidosis. LP performed and shows only a couple WBCs, glucose normal, total protein slightly high at 66 and Gm stain/culture negative so multidrug abx for presumptive meningitis dc'd 11/28. her retching and vomiting are the most prominent and disturbing symptom at present, refractory to multidrug regimen. she is more alert and talkative and more appropriate for staff and family at bedside. she continues to c/o abdominal wall pain, diffuse and dull aching in nature, constant and nonradiating. she is still retching and vomiting anything she tries to put in her mouth. no fevers, chills, neck pain/stiffness. ROS: she denies chest pain, BECKER, N/T but c/o abdominal wall pain, weakness, myalgias. all systems reviewed, see above, remaining systems negative. Physical Exam Vital Signs: Temp Pulse Resp BP Pulse Ox 99.2 F 63 16 144/68 H 97 11/29/16 11:51 11/29/16 11:51 11/29/16 11:51 11/29/16 11:51 11/29/16 11:51 Intake & Output 11/28/16 11/29/16 11/30/16 06:59 06:59 06:59 Intake Total 2375 3525 Output Total 2625 2925 Balance -250 600 Weight 93.2 kg General appearance: PRESENT: mild emotional distress, obese, well-developed, well-nourished Head exam: PRESENT: atraumatic, normocephalic Eye exam: PRESENT: EOMI. ABSENT: conjunctival injection, scleral icterus Neck exam: PRESENT: full ROM. ABSENT: meningismus, tenderness, tracheal deviation Respiratory exam: PRESENT: clear to auscultation ana. ABSENT: accessory muscle use, unlabored Cardiovascular exam: PRESENT: RRR. ABSENT: systolic murmur, tachycardia Pulses: PRESENT: normal radial pulses, normal dorsalis pedis pul GI/Abdominal exam: PRESENT: normal bowel sounds, soft, tenderness - wall tender to palpation and worse with movement Extremities exam: ABSENT: calf tenderness, pedal edema Musculoskeletal exam: PRESENT: full ROM, normal inspection Neurological exam: PRESENT: alert, awake, oriented to person, oriented to place , other - improving clonus at bilat ankles, now only 8-10 beats. reflexes abnormal - hyperreflexia patella with thigh fasciculations after testing also improving and nearly resolved, no more muscle rigidity of the thighs either Psychiatric exam: PRESENT: anxious, appropriate affect, normal mood Focused psych exam: ABSENT: pressured speech, psychomotor agitation Skin exam: PRESENT: warm - moist and pale Results Laboratory Results: 11/29/16 04:27 11/29/16 04:27 11/29/16 11/29/16 11/29/16 04:27 04:27 04:27 WBC 9.9 RBC 5.00 Hgb 13.9 Hct 41.7 MCV 84 MCH 27.8 MCHC 33.2 RDW 14.0 Plt Count 243 Seg Neutrophils % 80.2 H Lymphocytes % 10.7 L Monocytes % 8.2 Eosinophils % 0.1 Basophils % 0.8 Absolute Neutrophils 7.9 Absolute Lymphocytes 1.1 Absolute Monocytes 0.8 Absolute Eosinophils 0.0 Absolute Basophils 0.1 Sodium 140.8 Potassium 3.4 L Chloride 107 Carbon Dioxide 22 Anion Gap 12 BUN 13 Creatinine 0.64 Est GFR ( Amer) > 60 Est GFR (Non-Af Amer) > 60 Glucose 102 Calcium 9.0 Phosphorus 3.7 Magnesium 2.2 Total Bilirubin 0.8 AST 33 ALT 45 Alkaline Phosphatase 84 C-Reactive Protein 6.4 Total Protein 7.0 Albumin 4.0 Amylase 89 Lipase 500.2 H Impressions: Head MRI 11/27/16 00:00 IMPRESSION: NORMAL MRI OF THE BRAIN WITHOUT AND WITH INTRAVENOUS GADOLINIUM CONTRAST. Head CT 11/27/16 00:54 IMPRESSION: NORMAL BRAIN CT WITHOUT CONTRAST. Lumbar Puncture 11/28/16 00:00 IMPRESSION: Lumbar puncture under fluoroscopy. No immediate complication. Abdomen/Pelvis CT 11/29/16 00:00 IMPRESSION: 1. No acute abnormality. No radiographic evidence of pancreatitis. 2. Mild fatty change involving the liver. Status: Image reviewed by me Assessment & Plan - Diagnosis (1) Serotonin neurotoxicity Qualifiers: Encounter type: initial encounter Injury intent: accidental or unintentional Qualified Code(s): T50.991A - Poisoning by other drugs, medicaments and biological substances, accidental (unintentional), initial encounter Is this a current diagnosis for this admission?: YesPlan: I strongly suspect serotonin syndrome. treatment is benzo's and supportive. hyperemesis is problematic, added compazine and considered cyproheptadine, otherwise continue current care (2) Acute encephalopathy Is this a current diagnosis for this admission?: YesPlan: 2/2 above;resolved, back to baseline (3) Opiate dependence, continuous Is this a current diagnosis for this admission?: YesPlan: continue dilaudid to eliminate this as confounder; pill count from home appropriate per nursing staff and family (4) Depression Qualifiers: Depression Type: major depressive disorder Major depression recurrence : recurrent Active/Remission status: remission status unspecified Qualified Code(s): F33.9 - Major depressive disorder, recurrent, unspecified Is this a current diagnosis for this admission?: YesPlan: hold SSRI's, continue treat with benzos for now. consider mental health eval to decide on correction Rx management. (5) Fibromyalgia Is this a current diagnosis for this admission?: Yes (6) Hyperemesis Qualifiers: Vomiting type: unspecified Nausea presence: with nausea Qualified Code(s): R11.2 - Nausea with vomiting, unspecified Is this a current diagnosis for this admission?: YesPlan: likely 2/2 serotonin syndrome; little improvement with multidrug regimen, continue IVFs and add compazine monitoring for effect (7) Elevated lipase Is this a current diagnosis for this admission?: YesPlan: 2/2 above; ct scan and crp negative for acute inflammation of the pancreas - Time Time Spent with patient: 25-34 minutes
[2016-11-29] MEDS ORDERED: LORAZEPAM INJ 2 MG/1 ML VIAL IV ONE (15:30)
[2016-11-29] MEDS: HYDROMORPHONE HCL INJ/PF 2 MG/ML AMPULE IV PRN (17:55)
[2016-11-29] MEDS: LORAZEPAM INJ 2 MG/1 ML VIAL IV SCH (21:20)
[2016-11-30] MEDS: PROMETHAZINE HCL 25 MG SUPP.RECT PR PRN ×2 (01:47→17:46)
[2016-11-30] MEDS: ONDANSETRON HCL INJ/PF 4 MG/2 ML SDV IV SCH ×4 (03:25→22:18)
[2016-11-30] MEDS: HYDROMORPHONE HCL INJ/PF 2 MG/ML AMPULE IV PRN ×3 (03:25→17:45)
[2016-11-30 04:59] LABS: ABSOLUTE EOSINOPHILS # (AUTO) 0.1 10^3/uL (0.0-0.6); ABSOLUTE LYMPHOCYTES (AUTO) 1.1 10^3/uL (0.5-4.7); ABSOLUTE NEUT (AUTO) 6.7 10^3/uL (1.7-8.2); BASOPHILS % (AUTO) 0.5 % (0-2); HEMATOCRIT 39.8 % (36.0-47.0); HGB HCT DIFFERENCE -0.8; LYMPHOCYTES % (AUTO) 12.2 % (13-45); MEAN CORPUSCULAR HEMOGLOBIN 27.6 pg (27.0-33.4); MEAN CORPUSCULAR HGB CONC 32.7 g/dL (32.0-36.0); MEAN CORPUSCULAR VOLUME 84 fl (80-97); MONOCYTES % (AUTO) 10.8 % (3-13); RED BLOOD COUNT 4.71 10^6/uL (3.72-5.28); SEGMENTED NEUTROPHILS % (AUTO) 75.5 % (42-78); WHITE BLOOD COUNT 8.9 10^3/uL (4.0-10.5)
[2016-11-30 05:35] LABS: ALANINE AMINOTRANSFERASE 71 U/L (9-52); ALBUMIN 3.4 g/dL (3.5-5.0); ALKALINE PHOSPHATASE 79 U/L (38-126); AMYLASE 85 U/L (30-110); ANION GAP 11 (5-19); ASPARTATE AMINO TRANSFERASE 52 U/L (14-36); BILIRUBIN,DIRECT 0.4 mg/dL (0.0-0.4); BILIRUBIN,TOTAL 0.9 mg/dL (0.2-1.3); BLOOD UREA NITROGEN 12 mg/dL (7-20); CALCIUM 8.7 mg/dL (8.4-10.2); CARBON DIOXIDE 22 mmol/L (22-30); CHLORIDE 107 mmol/L (98-107); CREATININE RESULT 0.59 mg/dL (0.52-1.25); GLUCOSE 94 mg/dL (75-110); LIPASE 636.8 U/L (23-300); MAGNESIUM 2.2 mg/dL (1.6-2.3); POTASSIUM 3.1 mmol/L (3.6-5.0); TOTAL PROTEIN 6.1 g/dL (6.3-8.2)
[2016-11-30] MEDS: NORMAL SALINE 1000 ML 1,000 ML IV PRN ×2 (06:06→22:17)
[2016-11-30] MEDS: LORAZEPAM INJ 2 MG/1 ML VIAL IV SCH ×3 (06:07→22:18)
--- NOTE | 2016-11-30 15:05 | PDOC PROGRESS REPORT ---
Subjective Progress Note for:: 11/30/16 Subjective:: Presented with intractable nausea and vomiting. Initially, it was suspected that the patient was having issues due to withdrawal from chronic opioids and benzodiazepines. Currently, the patient's working diagnosis is serotonin syndrome as she has had evidence of clonus and rigidity. Today, her LFTs are elevated. Her lipase is up slightly and her potassium is low. The patient told me this morning that she has not vomited since yesterday. He is feeling much better. Physical Exam Vital Signs: Temp Pulse Resp BP Pulse Ox 98.2 F 65 16 127/71 H 100 11/30/16 12:14 11/30/16 12:14 11/30/16 12:14 11/30/16 12:14 11/30/16 12:14 Intake & Output 11/29/16 11/30/16 12/01/16 06:59 06:59 06:59 Intake Total 3525 3200 355 Output Total 2925 1550 1300 Balance 600 1650 -945 Weight 88.7 kg General appearance: PRESENT: no acute distress, well-developed, well-nourished Head exam: PRESENT: atraumatic, normocephalic Eye exam: PRESENT: conjunctiva pink, EOMI, PERRLA. ABSENT: scleral icterus Ear exam: PRESENT: normal external ear exam Mouth exam: PRESENT: moist, tongue midline Neck exam: ABSENT: carotid bruit, JVD, lymphadenopathy, thyromegaly Respiratory exam: PRESENT: clear to auscultation ana. ABSENT: rales, rhonchi, wheezes Cardiovascular exam: PRESENT: RRR. ABSENT: diastolic murmur, rubs, systolic murmur Pulses: PRESENT: normal dorsalis pedis pul Vascular exam: PRESENT: normal capillary refill GI/Abdominal exam: PRESENT: normal bowel sounds, soft. ABSENT: distended, guarding, mass, organolmegaly, rebound, tenderness Rectal exam: PRESENT: deferred Extremities exam: PRESENT: full ROM. ABSENT: calf tenderness, clubbing, pedal edema Neurological exam: PRESENT: alert, awake, oriented to person, oriented to place , oriented to time, oriented to situation, CN II-XII grossly intact. ABSENT: motor sensory deficit Psychiatric exam: PRESENT: appropriate affect, normal mood. ABSENT: homicidal ideation, suicidal ideation Skin exam: PRESENT: dry, intact, warm. ABSENT: cyanosis, rash Results Laboratory Results: 11/30/16 04:16 11/30/16 04:16 11/30/16 11/30/16 04:16 04:16 WBC 8.9 RBC 4.71 Hgb 13.0 Hct 39.8 MCV 84 MCH 27.6 MCHC 32.7 RDW 14.0 Plt Count 233 Seg Neutrophils % 75.5 Lymphocytes % 12.2 L Monocytes % 10.8 Eosinophils % 1.0 Basophils % 0.5 Absolute Neutrophils 6.7 Absolute Lymphocytes 1.1 Absolute Monocytes 1.0 Absolute Eosinophils 0.1 Absolute Basophils 0.0 Sodium 140.0 Potassium 3.1 L Chloride 107 Carbon Dioxide 22 Anion Gap 11 BUN 12 Creatinine 0.59 Est GFR ( Amer) > 60 Est GFR (Non-Af Amer) > 60 Glucose 94 Calcium 8.7 Magnesium 2.2 Total Bilirubin 0.9 AST 52 H ALT 71 H Alkaline Phosphatase 79 Total Protein 6.1 L Albumin 3.4 L Amylase 85 Lipase 636.8 H Impressions: Head MRI 11/27/16 00:00 IMPRESSION: NORMAL MRI OF THE BRAIN WITHOUT AND WITH INTRAVENOUS GADOLINIUM CONTRAST. Head CT 11/27/16 00:54 IMPRESSION: NORMAL BRAIN CT WITHOUT CONTRAST. Lumbar Puncture 11/28/16 00:00 IMPRESSION: Lumbar puncture under fluoroscopy. No immediate complication. Abdomen/Pelvis CT 11/29/16 00:00 IMPRESSION: 1. No acute abnormality. No radiographic evidence of pancreatitis. 2. Mild fatty change involving the liver. Assessment & Plan - Diagnosis (1) Hypokalemia Is this a current diagnosis for this admission?: YesPlan: Oral replacement today. (2) Serotonin neurotoxicity Qualifiers: Encounter type: initial encounter Injury intent: accidental or unintentional Qualified Code(s): T50.991A - Poisoning by other drugs, medicaments and biological substances, accidental (unintentional), initial encounter Is this a current diagnosis for this admission?: YesPlan: Neurologically, the patient appears to be without evidence of serotonin syndrome at this time. Thus, she appears to be significantly improved. We will continue to avoid these medications. (3) Hyperemesis Qualifiers: Vomiting type: unspecified Nausea presence: with nausea Qualified Code(s): R11.2 - Nausea with vomiting, unspecified Is this a current diagnosis for this admission?: YesPlan: Improved. Advance diet. (4) Elevated lipase Is this a current diagnosis for this admission?: YesPlan: ,Clinically, Patient has no evidence of pancreatitis. We will advance her diet. (5) Acute encephalopathy Is this a current diagnosis for this admission?: YesPlan: Resolving (6) Acidosis Is this a current diagnosis for this admission?: Yes (7) Nausea & vomiting Qualifiers: Vomiting type: unspecified Vomiting Intractability: non-intractable Qualified Code(s): R11.2 - Nausea with vomiting, unspecified Is this a current diagnosis for this admission?: Yes (9) Benzodiazepine dependence, continuous Is this a current diagnosis for this admission?: Yes (10) Opiate dependence, continuous Is this a current diagnosis for this admission?: Yes - Time Time Spent with patient: 15-24 minutes - Inpatient Certification Medical Necessity: Need Close Monitoring Due to Risk of Patient Decompensation - Plan Summary Plan Summary: Patient appears to be improving. She has had an extensive evaluation. Serotonin syndrome is an extremely serious diagnosis, but, with withdrawal of her medications she does appear to be improved. Today, she is eating. She has not had any further nausea or vomiting. I will attempt to replace her potassium orally. If she is improved by tomorrow and continues to have a normal neurological exam with safe laboratory values I may be able to discharge her home.
[2016-11-30] MEDS ORDERED: ENOXAPARIN SODIUM INJ 40 MG/0.4 ML DISP.SYRIN SUBCUT ONE (16:00)
[2016-11-30] MEDS ORDERED: POTASSIUM CHLORIDE 10 MEQ TABLET.SA PO ONE (16:00)
[2016-12-01] MEDS ORDERED: ACETAMINOPHEN 325 MG TABLET PO PRN ×2 (00:40→01:02)
[2016-12-01] MEDS ORDERED: ACETAMINOPHEN 325 MG TABLET ONE (00:42)
[2016-12-01] MEDS: HYDROMORPHONE HCL INJ/PF 2 MG/ML AMPULE IV PRN (02:34)
[2016-12-01] MEDS: ONDANSETRON HCL INJ/PF 4 MG/2 ML SDV IV SCH ×3 (02:35→14:46)
[2016-12-01 04:38] LABS: HEMATOCRIT 39.2 % (36.0-47.0); HEMOGLOBIN 13.3 g/dL (12.0-15.5); HGB HCT DIFFERENCE 0.7; MEAN CORPUSCULAR HEMOGLOBIN 28.2 pg (27.0-33.4); MEAN CORPUSCULAR HGB CONC 33.8 g/dL (32.0-36.0); MEAN CORPUSCULAR VOLUME 84 fl (80-97); RED CELL DISTRIBUTION WIDTH 14.3 % (11.5-14.0); WHITE BLOOD COUNT 6.6 10^3/uL (4.0-10.5)
[2016-12-01 04:56] LABS: ALANINE AMINOTRANSFERASE 94 U/L (9-52); ALBUMIN 3.4 g/dL (3.5-5.0); ALKALINE PHOSPHATASE 84 U/L (38-126); ANION GAP 9 (5-19); ASPARTATE AMINO TRANSFERASE 49 U/L (14-36); BILIRUBIN,DIRECT 0.3 mg/dL (0.0-0.4); BILIRUBIN,TOTAL 0.7 mg/dL (0.2-1.3); BLOOD UREA NITROGEN 10 mg/dL (7-20); CALCIUM 8.9 mg/dL (8.4-10.2); CARBON DIOXIDE 23 mmol/L (22-30); CHLORIDE 108 mmol/L (98-107); CREATININE RESULT 0.67 mg/dL (0.52-1.25); GLUCOSE 103 mg/dL (75-110); MAGNESIUM 2.1 mg/dL (1.6-2.3); POTASSIUM 3.4 mmol/L (3.6-5.0); SODIUM 139.8 mmol/L (137-145); TOTAL PROTEIN 6.1 g/dL (6.3-8.2)
[2016-12-01] MEDS: LORAZEPAM INJ 2 MG/1 ML VIAL IV SCH ×2 (06:12→14:48)
[2016-12-01] MEDS: OXYCODONE HCL SR 10 MG TABLET PO SCH ×2 (09:53→21:05)
[2016-12-01] MEDS: OXYCODONE HCL IR 5 MG TABLET PO PRN ×4 (09:54→22:43)
[2016-12-01] MEDS: ENOXAPARIN SODIUM INJ 40 MG/0.4 ML DISP.SYRIN SUBCUT SCH (09:55)
[2016-12-01] MEDS: PROMETHAZINE HCL 25 MG SUPP.RECT PR PRN (10:55)
--- NOTE | 2016-12-01 14:10 | PSYCHOLOGICAL NOTE ---
Psych Note - Psych Note Psych Note: Patient is a 61 year old female who presents with altered mental status and vomiting. Patient is apparently been admitted to this hospital on 2 separate occasions for similar presentations often due to narcotic abuse and withdrawal ( 01/26/2016; 05/25/2016). Patient states that she does have a history of suicidal ideation however denies current suicidal ideation. Patient denies history of substance abuse. Patient states that she does have a diagnosis of bipolar and depression. She continued disclosed that she sees Dr. Espinoza at [facility] and he has "been trying to help me find something different." She continues states that she has tried many different medications and has not found one to successfully assist her with her symptoms. Patient states that she has had multiple inpatient treatment to include [place], [place], [place], [place], and [place] in [place]. Most recent inpatient was sometime in 2006 or 2007 timeframe at [place]. Patient states she suffers from fibromyalgia, chronic fatigue syndrome, degenerative disc disease, and suffers from headaches every day. Patient is alert to oriented to person, place, time and circumstance. Mood is euthymic with congruent affect. Patient denies current suicidal ideation. Patient denies homicidal ideation. Patient denies auditory and visual hallucinations; patient is not demonstrating any behaviours congruent to responding to internal stimuli. No delusions are noted. Thought process is organized and linear. Conversational speech is within normal rate, tone and prosody. Eye contact was well maintained. Intellectual abilities appear to be within normal range. Attention and concentration are good. Insight, judgement and impulse control appear to be fair. 296.80 (F31.9) Unspecified Bipolar disorder per history provided by patient 304.00 (F11.20) Opioid use disorder;sever 304.10 (F13.20) Benzodiazapine use disorder; sever Impression\\plan: Patient is considered psychiatrically clear for discharge. Patient does not appear to have an neuroleptic malignant syndrome (NMS) or serotonin toxicity as evidenced by positive toxicology report for opiates, lack of "lead pipe" rigidity in muscles, lack of fever and steady blood pressure. Both Prozac and Zoloft was prescribed to the patient; however, the patient was only taking Zoloft evidenced by the full prescription bottle of Prozac filled 10/30/2016 (30 of 30 pills counted) and mostly finished bottle of Zoloft filled 2016 (3 of 30 pills counted). bottle of BuSpar also filled 10/30/2016 (28.5 of 90 pills counted; indicating patient is taking less then prescribed). However, patient is noted to have been prescribed sequel 400 mg QHS which was discontinued at her admission to the hospital, thus it is possible she demonstrated minor symptoms of an NMS symptoms 24-48 hours after admission to the hospital secondary to rapid discontinuation of the medication. Serotonin syndrome is unlikely given that she was taking just one SSRI, at a low dose, and was taking it appropriately, as evidenced by a pill count. Patient's presentation upon arrival to the hospital and review of subsequent records suggest the patient likely overused and misused her narcotic and benzodiazepine prescriptions coupled with significant dehydration causing her presenting symptoms of somnolence, altered mental status, lethargy, and disorientation. Review of patient's [place] controlled substance database shows that each month patient received 60 40 mg OxyContin tablets, 30 oxycodone 10 mg tablets, 30 zolpidem 10 mg tablets as well as 83 Xanax 1 mg tablets. This means that any given day the patient is receiving a total of 80 mg of OxyContin, 10 mg of oxycodone, 10 mg of zolpidem as well as anywhere between 2-3 mg of alprazolam. Patient has a history of opiate dependency/misuse and benzodiazepine dependency/ misuse and her prescribing community physicians should be contacted regarding this ongoing problem. Prescribing physicians are encouraged to consider the addiction potential before prescribing to this patient. Clinician provided substance misuse evaluation, psychoeducation and list a referral resources for substance abuse. Dr. Prasad was consulted on the care and management.
[2016-12-01] MEDS ORDERED: LORAZEPAM 1 MG TABLET PO PRN (14:59)
[2016-12-01] MEDS ORDERED: ONDANSETRON HCL INJ/PF 4 MG/2 ML SDV IV PRN (15:00)
--- NOTE | 2016-12-01 16:00 | PDOC PROGRESS REPORT ---
Subjective Progress Note for:: 12/01/16 Subjective:: Presented with intractable nausea and vomiting. Initially, it was suspected that the patient was having issues due to withdrawal from chronic opioids and benzodiazepines. The patient's working diagnosis is serotonin syndrome as she has had evidence of clonus and rigidity. Today, her LFTs are elevated. Her lipase is up slightly and her potassium is low. The patient told me this morning that she has not vomited since yesterday. He is feeling much better. Having nausea overnight. Psychiatry was evaluated. They do not feel that the patient have serotonin syndrome. They feel that the rapid discontinuation of therapy could have led to an MS-like symptoms upon admission. Also, psychiatry feels that the patient's dose of narcotic and benzodiazepine is inappropriate. Physical Exam Vital Signs: Temp Pulse Resp BP Pulse Ox 99.8 F 72 12 139/58 H 95 12/01/16 11:51 12/01/16 11:51 12/01/16 11:51 12/01/16 11:51 12/01/16 11:51 Intake & Output 11/30/16 12/01/16 12/02/16 06:59 06:59 06:59 Intake Total 3200 3705 118 Output Total 1550 3350 1700 Balance 1650 355 -1582 Weight 88.7 kg 89.4 kg General appearance: PRESENT: no acute distress, cooperative Head exam: PRESENT: atraumatic Eye exam: PRESENT: EOMI Mouth exam: PRESENT: moist, neck supple Neck exam: PRESENT: full ROM Respiratory exam: PRESENT: clear to auscultation ana Cardiovascular exam: PRESENT: RRR GI/Abdominal exam: PRESENT: normal bowel sounds, soft Musculoskeletal exam: PRESENT: full ROM Results Laboratory Results: 12/01/16 03:57 12/01/16 03:57 12/01/16 12/01/16 12/01/16 03:57 03:57 14:40 WBC 6.6 RBC 4.70 Hgb 13.3 Hct 39.2 MCV 84 MCH 28.2 MCHC 33.8 RDW 14.3 H Plt Count 243 Sodium 139.8 Potassium 3.4 L Chloride 108 H Carbon Dioxide 23 Anion Gap 9 BUN 10 Creatinine 0.67 Est GFR ( Amer) > 60 Est GFR (Non-Af Amer) > 60 Glucose 103 Calcium 8.9 Magnesium 2.1 Total Bilirubin 0.7 AST 49 H ALT 94 H Alkaline Phosphatase 84 Total Protein 6.1 L Albumin 3.4 L Stool Occult Blood NEGATIVE 11/28/16 11:08 Cerebral Spinal Fluid - Tube 1 (Csf) Gram Stain - Final 11/28/16 11:08 Cerebral Spinal Fluid - Tube 1 (Csf) CSF Culture - Final NO GROWTH 3 DAYS Impressions: Head MRI 11/27/16 00:00 IMPRESSION: NORMAL MRI OF THE BRAIN WITHOUT AND WITH INTRAVENOUS GADOLINIUM CONTRAST. Head CT 11/27/16 00:54 IMPRESSION: NORMAL BRAIN CT WITHOUT CONTRAST. Lumbar Puncture 11/28/16 00:00 IMPRESSION: Lumbar puncture under fluoroscopy. No immediate complication. Abdomen/Pelvis CT 11/29/16 00:00 IMPRESSION: 1. No acute abnormality. No radiographic evidence of pancreatitis. 2. Mild fatty change involving the liver. Assessment & Plan - Diagnosis (1) Hypokalemia Is this a current diagnosis for this admission?: Yes (2) Serotonin neurotoxicity Qualifiers: Encounter type: initial encounter Injury intent: accidental or unintentional Qualified Code(s): T50.991A - Poisoning by other drugs, medicaments and biological substances, accidental (unintentional), initial encounter Is this a current diagnosis for this admission?: Yes (3) Hyperemesis Qualifiers: Vomiting type: unspecified Nausea presence: with nausea Qualified Code(s): R11.2 - Nausea with vomiting, unspecified Is this a current diagnosis for this admission?: Yes (4) Elevated lipase Is this a current diagnosis for this admission?: Yes (5) Acute encephalopathy Is this a current diagnosis for this admission?: Yes (6) Acidosis Is this a current diagnosis for this admission?: Yes (7) Nausea & vomiting Qualifiers: Vomiting type: unspecified Vomiting Intractability: non-intractable Qualified Code(s): R11.2 - Nausea with vomiting, unspecified Is this a current diagnosis for this admission?: Yes (9) Benzodiazepine dependence, continuous Is this a current diagnosis for this admission?: Yes (10) Opiate dependence, continuous Is this a current diagnosis for this admission?: Yes - Time Time Spent with patient: 15-24 minutes Anticipated discharge: Home Within: within 24 hours - Plan Summary Plan Summary: Patient appears to be substantially better. She is tolerating a regular diet. Her liver function tests remain slightly elevated. I suspect that this is due to the medications that she has been receiving for nausea and vomiting. She does not have any clinical evidence of pancreatitis. However, I would recommend following up lipase after discharge. Her potassium is nearly corrected. This will likely correct with improved diet. I greatly appreciate your assistance from psychiatry. Their advice will help us transition the patient to an outpatient setting successfully.
[2016-12-01 16:07] LABS: APPEARANCE,URINE CLEAR; BILIRUBIN,URINE NEGATIVE (NEGATIVE); GLUCOSE, URINE NEGATIVE (NEGATIVE); KETONES,URINE NEGATIVE (NEGATIVE); LEUKOCYTE ESTERASE,URINE NEGATIVE (NEGATIVE); NITRITE,URINE NEGATIVE (NEGATIVE); PROTEIN,URINE NEGATIVE (NEGATIVE); URINE SPECIFIC GRAVITY 1.011; UROBILINOGEN,URINE NEGATIVE mg/dL (<2.0)
[2016-12-02] MEDS: OXYCODONE HCL IR 5 MG TABLET PO PRN ×2 (02:37→08:02)
[2016-12-02] MEDS: PROMETHAZINE HCL 25 MG SUPP.RECT PR PRN (03:41)
[2016-12-02 05:14] LABS: ALANINE AMINOTRANSFERASE 77 U/L (9-52); ALBUMIN 3.7 g/dL (3.5-5.0); ALKALINE PHOSPHATASE 87 U/L (38-126); ANION GAP 12 (5-19); ASPARTATE AMINO TRANSFERASE 31 U/L (14-36); BILIRUBIN,DIRECT 0.3 mg/dL (0.0-0.4); BILIRUBIN,TOTAL 0.7 mg/dL (0.2-1.3); BLOOD UREA NITROGEN 8 mg/dL (7-20); CALCIUM 9.1 mg/dL (8.4-10.2); CARBON DIOXIDE 23 mmol/L (22-30); CHLORIDE 104 mmol/L (98-107); CREATININE RESULT 0.65 mg/dL (0.52-1.25); GLUCOSE 96 mg/dL (75-110); LIPASE 641.9 U/L (23-300); POTASSIUM 3.2 mmol/L (3.6-5.0); SODIUM 139.3 mmol/L (137-145)
[2016-12-02] MEDS ORDERED: POTASSIUM CHLORIDE 10 MEQ TABLET.SA PO ONE (09:15)
[2016-12-02] MEDS: OXYCODONE HCL SR 10 MG TABLET PO SCH (09:21)
[2016-12-02] MEDS: ENOXAPARIN SODIUM INJ 40 MG/0.4 ML DISP.SYRIN SUBCUT SCH (09:22)
--- NOTE | 2016-12-02 12:08 | PDOC DISCHARGE SUMMARY ---
General - Admit/Disc Date/PCP Admission Date/Primary Care Provider: 11/27/16 06:43 Discharge Date: 12/02/16 - Discharge Diagnosis (1) Hypokalemia Is this a current diagnosis for this admission?: Yes (2) Serotonin neurotoxicity Is this a current diagnosis for this admission?: Yes (3) Hyperemesis Is this a current diagnosis for this admission?: Yes (4) Elevated lipase Is this a current diagnosis for this admission?: Yes (5) Acute encephalopathy Is this a current diagnosis for this admission?: Yes (6) Acidosis Is this a current diagnosis for this admission?: Yes (7) Nausea & vomiting Is this a current diagnosis for this admission?: Yes (9) Benzodiazepine dependence, continuous Is this a current diagnosis for this admission?: Yes (10) Opiate dependence, continuous Is this a current diagnosis for this admission?: Yes - Additional Information Resuscitation Status: Full Code Discharge Diet: As Tolerated Discharge Activity: Activity As Tolerated Home Medications: Gabapentin 800 mg PO Q6 05/26/16 Zolpidem Tartrate 10 mg PO QHS 05/26/16 Buspirone HCl 15 mg PO TID 11/27/16 Naloxone HCl [Narcan] 1 spray IN PRN PRN 11/27/16 Lorazepam [Ativan 1 mg Tablet] 1 mg PO Q8HP PRN #10 tablet 12/02/16 Oxycodone HCl [Oxy-Ir 5 mg Tablet] 5 mg PO Q4HP PRN #10 tablet 12/02/16 Oxycodone HCl [Oxycontin Sr 10 mg Tablet] 20 mg PO Q12 #10 tab.sr.12h 12/02/16 Potassium Chloride [Klor-Con 10 Meq Tablet.sa] 20 meq PO DAILY #7 tablet.sa 11/13 History of Present Illness Patient complains of: TELLO KAHN is a 61 year old female with chronic pain syndrome, requiring chronic opioid use, along with chronic benzodiazepine use, who presents to the emergency room for evaluation of above complaints. Patient has been discussed with emergency room physician who evaluated the patient. Patient is globally disoriented and is able to provide no history whatsoever in terms of acute or chronic events, review of systems, personal habits, family history, etc. No family present. A "special" male friend is present at her side, but can provide little information about acute events, and virtually nothing about chronic health issues. Old inpatient records are reviewed. Since Tuesday, patient is noted persistent nausea, along with frequently falling asleep. Poor p.o. intake over this time span. Over the last 24 hours or so, as best can be determined, she has had intermittent episodes of vomiting. Possibly diarrhea. ER physician notes related to her prescription drug use, and its suspected amounts, reviewed. No further information available this point in time. Was seen in consultation in the emergency room on 05/26/2016 for evaluation of nausea and vomiting. Opiate withdrawal was felt at least partly responsible for her symptoms. Admission was not felt warranted. Consult has been reviewed. Hospitalized 01/25 through with final diagnoses including urinary tract infection, intractable nausea and vomiting, chronic pain syndrome requiring chronic opioid use, and chronic anxiolytic use. History and physical and discharge summary have been reviewed. History of Present Illness: TELLO KAHN is a 61 year old female Hospital Course Hospital Course: Patient was admitted with a several day history of increasing somnolence as well as nausea and vomiting. Of note, her long acting oxycodone was recently increased from 20 mg every 12 hours to 40 mg every 12 hours. This appears to have led to her symptoms that precipitated her admission. During the initial part of the patient's hospitalization she was felt to have possible serotonin syndrome as she had lower extremity clonus, muscle rigidity and hyperreflexia. All of her neuroleptic agents were discontinued to include Seroquel, Prozac, Zoloft. Prior to discharge the patient was evaluated by psychiatry. They feel that serotonin syndrome is unlikely but possible. She may have had mild symptoms of an NMS like picture related to the abrupt withdrawal of Seroquel. However, all of her symptomatology has resolved. The decision has been made to discharge the patient on BuSpar and avoid Seroquel, Prozac and Zoloft. The patient has a follow-up appointment at the [facility] next Tuesday at 6:40 PM. At that visit her behavioral health specialist will address her psychiatric regimen. Our psychiatrists have recommended a mood stabilizing drug as opposed to an antidepressant. During this hospitalization the patient was using frequent amounts of Dilaudid. Her intravenous pain medications were discontinued 2 days ago. I put her back on long-acting oxycodone 20 mg twice a day with short acting oxycodone 5 mg for breakthrough pain. Our psychiatry team has also reached out to the patient's pain specialist to discuss her complex regimen. Upon Presentation, it is felt that the patient's dosages were too high leading to excess somnolence. At this point time the patient's vomiting has resolved. She has mild nausea. She did have 2 episodes of loose stools yesterday but has not had a bowel movement today. I do not think she has any risk for hospital acquired diarrhea. Patient had an abdominal pelvic CT scan here which was normal, but, she has a persistently elevated lipase level during this hospitalization and mildly elevated LFTs. These lab values will need to be followed up after discharge. Physical Exam Vital Signs: Temp Pulse Resp BP Pulse Ox 98.3 F 55 L 16 122/61 95 12/02/16 03:27 12/02/16 07:00 12/02/16 03:27 12/02/16 03:27 12/02/16 03:27 Intake & Output 12/01/16 12/02/16 12/03/16 06:59 06:59 06:59 Intake Total 3705 1068 Output Total 3350 2700 Balance 355 -1632 Weight 89.4 kg 89.2 kg General appearance: PRESENT: no acute distress, cooperative Eye exam: PRESENT: EOMI Neck exam: PRESENT: full ROM Respiratory exam: PRESENT: crackles Cardiovascular exam: PRESENT: RRR GI/Abdominal exam: PRESENT: normal bowel sounds, soft Rectal exam: PRESENT: deferred Musculoskeletal exam: PRESENT: ambulatory Psychiatric exam: PRESENT: flat affect Results Laboratory Results: 12/01/16 03:57 12/02/16 04:16 12/01/16 12/01/16 12/02/16 14:38 14:40 04:16 Sodium 139.3 Potassium 3.2 L Chloride 104 Carbon Dioxide 23 Anion Gap 12 BUN 8 Creatinine 0.65 Est GFR ( Amer) > 60 Est GFR (Non-Af Amer) > 60 Glucose 96 Calcium 9.1 Total Bilirubin 0.7 AST 31 ALT 77 H Alkaline Phosphatase 87 Total Protein 6.0 L Albumin 3.7 Lipase 641.9 H Urine Color YELLOW Urine Appearance CLEAR Urine pH 7.0 Ur Specific [place] 1.011 Urine Protein NEGATIVE Urine Glucose (UA) NEGATIVE Urine Ketones NEGATIVE Urine Blood NEGATIVE Urine Nitrite NEGATIVE Ur Leukocyte Esterase NEGATIVE Urine WBC (Auto) 1 Urine RBC (Auto) 1 Stool Occult Blood NEGATIVE 11/27/16 08:19 Blood Blood Culture - Final NO GROWTH IN 5 DAYS 11/27/16 06:50 Blood Blood Culture - Final NO GROWTH IN 5 DAYS 11/28/16 11:08 Cerebral Spinal Fluid - Tube 1 (Csf) Gram Stain - Final 11/28/16 11:08 Cerebral Spinal Fluid - Tube 1 (Csf) CSF Culture - Final NO GROWTH 3 DAYS Impressions: Head MRI 11/27/16 00:00 IMPRESSION: NORMAL MRI OF THE BRAIN WITHOUT AND WITH INTRAVENOUS GADOLINIUM CONTRAST. Head CT 11/27/16 00:54 IMPRESSION: NORMAL BRAIN CT WITHOUT CONTRAST. Lumbar Puncture 11/28/16 00:00 IMPRESSION: Lumbar puncture under fluoroscopy. No immediate complication. Abdomen/Pelvis CT 11/29/16 00:00 IMPRESSION: 1. No acute abnormality. No radiographic evidence of pancreatitis. 2. Mild fatty change involving the liver. Plan Discharge Plan: 1. Follow-up with Morgan SANCHEZ on December 06 at 6:40 PM 2. Follow-up with Dr. Lizabeth Torres as scheduled 3. Follow-up with crayon painter in 1 week Follow-up for complete metabolic panel with lipase and amylase in 1 week Time Spent: Greater than 30 Minutes
[2016-12-02 12:40] VITALS: BP 143/85
[2016-12-03] MEDS ORDERED: POTASSIUM CHLORIDE 10 MEQ TABLET.SA PO SCH (10:00)
== END 2016-12-02 13:37 | disposition home or self-care (01) | DRG 640 ==
LOC: ER 23:37 → UNDOADMIN 11-27 03:45 → EH 11-27 03:45 → 3W 11-27 11:16
PROVIDERS: ADMIT Family Medicine; ATTEND Family Medicine
PROC: 009U3ZX Drainage of Spinal Canal, Percutaneous Approach, Diagnostic (ICD-10-PCS; principal; 2016-11-28)
PROC: B01B1ZZ Fluoroscopy of Spinal Cord using Low Osmolar Contrast (ICD-10-PCS; 2016-11-28)
DX: E87.6 Hypokalemia (principal); G92 Toxic encephalopathy; F13.20 Sedative, hypnotic or anxiolytic dependence, uncomplicated; F11.20 Opioid dependence, uncomplicated; F33.9 Major depressive disorder, recurrent, unspecified; T40.2X1A Poisoning by other opioids, accidental (unintentional), initial encounter; E87.2 Acidosis; E87.1 Hypo-osmolality and hyponatremia; F19.10 Other psychoactive substance abuse, uncomplicated; G89.4 Chronic pain syndrome; E86.0 Dehydration; M79.7 Fibromyalgia; R11.2 Nausea with vomiting, unspecified; Y92.009 Unspecified place in unspecified non-institutional (private) residence as the place of occurrence of the external cause
CPT/HCPCS: 36415; 51701; 62270; 70450; 70553; 74177; 77003; 80048; 80053; 80307; 81001; 82140; 82150; 82272; 82550; 82803; 82945; 83605; 83690; 83735; 84100; 84157; 84443; 84484; 85025; 85027; 85610; 85730; 86140; 86403; 87040; 87070; 87086; 87205; 87210; 87252; 89050; 93005; 93010; 96361; 96365; 96366; 96368; 96375; 96376; 99285; A9577; G8978-GP; G8979-GP; G8980-GP; J0133; J0696; J1100; J1170; J1650; J2060; J2405; J2550; J2765; J3360; J3370; J3475; J3480; J3490; J7030; J7050; J7060; J7120; S0183

== ENCOUNTER 2016-12-28 03:45 | Emergency (ER) | payer MEDICARE ==
[2016-12-28] MEDS ORDERED: ONDANSETRON HCL INJ/PF 4 MG/2 ML SDV IV ONE ×2 (04:51→15:15)
[2016-12-28] MEDS ORDERED: NORMAL SALINE 1000 ML 1,000 ML IV ONE (04:51)
[2016-12-28] MEDS ORDERED: DIPHENHYDRAMINE HCL 50 MG/ML VIAL IV ONE (04:52)
[2016-12-28 04:57] LABS: ABSOLUTE BASOPHILS # (AUTO) 0.1 10^3/uL (0.0-0.2); ABSOLUTE LYMPHOCYTES (AUTO) 1.4 10^3/uL (0.5-4.7); ABSOLUTE MONOCYTES (AUTO) 0.9 10^3/uL (0.1-1.4); ABSOLUTE NEUT (AUTO) 8.5 10^3/uL (1.7-8.2); BASOPHILS % (AUTO) 0.8 % (0-2); EOSINOPHILS % (AUTO) 0.2 % (0-6); HEMATOCRIT 44.3 % (36.0-47.0); HGB HCT DIFFERENCE 0.7; LYMPHOCYTES % (AUTO) 13.1 % (13-45); MEAN CORPUSCULAR HEMOGLOBIN 28.7 pg (27.0-33.4); MEAN CORPUSCULAR HGB CONC 33.9 g/dL (32.0-36.0); MEAN CORPUSCULAR VOLUME 85 fl (80-97); MONOCYTES % (AUTO) 8.1 % (3-13); RED BLOOD COUNT 5.24 10^6/uL (3.72-5.28); RED CELL DISTRIBUTION WIDTH 14.6 % (11.5-14.0); SEGMENTED NEUTROPHILS % (AUTO) 77.8 % (42-78); WHITE BLOOD COUNT 10.9 10^3/uL (4.0-10.5)
--- NOTE | 2016-12-28 04:57 | ER Document Report ---
ED GI/ - General Mode of Arrival: Medic Information source: Patient TRAVEL OUTSIDE OF THE [place] IN LAST 30 DAYS: No - HPI Patient complains to provider of: Abdominal pain, Vomiting, Other - Tremors Onset: Other - Tuesday Timing/Duration: Persistent Quality of pain: Cramping Severity at maximum: Severe Severity in ED: Severe Pain Level: 5 Location: LUQ, LLQ, RUQ Vaginal bleeding (Compared to normal period): None Associated symptoms: Nausea, Vomiting, Other - tremors Exacerbated by: Movement, Walking, Food Relieved by: Denies Similar symptoms previously: Yes Recently seen / treated by doctor: Yes <JORGE LOVE - Last Filed: 12/28/16 08:21> <KANU OMER - Last Filed: 12/28/16 14:14> - General Chief Complaint: Vomiting Stated Complaint: VOMITING Time Seen by Provider: 12/28/16 04:36 Notes: 61-year-old female presents to ED for nausea vomiting and tremors since Tuesday. Patient having dry heaves when I walked into the room no emesis at this time. She states she has not been able to keep any food or fluids down since I. States she was admitted recently and diagnosed with serotonin syndrome 2 weeks ago while in the hospital. She states she is followed up with her pain management doctor and top knitter since then but has not seen a primary doctor in over a year. She is currently on oxycodone Seroquel hydroxyzine OxyContin gabapentin Prozac Mobic and Nexium. She has a past medical history of chronic back pain with arthritis and fibromyalgia anxiety depression bipolar headache degenerative disc disease with previous cervical fusion. She is on chronic pain management for her fibromyalgia and neck pain. She had a colonoscopy and told that she had a bowel obstruction at the time. She states she has been followed up with GI since then and has never been told she had anymore problems with that but she does sometimes have pain in her lower left abdomen. (JORGE LOVE) - Related Data Allergies/Adverse Reactions: No Known Allergies Allergy (Verified 01/23/16 15:51) Past Medical History - General Information source: Patient - Social History Smoking Status: Never Smoker Cigarette use (# per day): No Chew tobacco use (# tins/day): No Smoking Education Provided: No Frequency of alcohol use: None Drug Abuse: None Lives with: Spouse/Significant other Family History: Hypertension - Past Medical History Cardiac Medical History: Reports: None Pulmonary Medical History: Reports: None EENT Medical History: Reports: None Neurological Medical History: Reports: None Endocrine Medical History: Reports: None Renal/ Medical History: Reports: None Malignancy Medical History: Reports: None GI Medical History: Reports: Hx Gastroesophageal Reflux Disease, Hx Colonoscopy Musculoskeltal Medical History: Reports Hx Arthritis - Chronic back pain, Reports Hx Fibromyalgia, Reports Hx Musculoskeletal Deformity, Reports Hx Musculoskeletal Trauma Skin Medical History: Reports None Psychiatric Medical History: Reports: Hx Anxiety, Hx Bipolar Disorder, Hx Depression Traumatic Medical History: Reports: None Infectious Medical History: Reports: None Past Surgical History: Reports: Hx Section - x2, Hx Orthopedic Surgery - cervical fusion - Immunizations Hx Diphtheria, Pertussis, Tetanus Vaccination: Yes <JORGE LOVE - Last Filed: 12/28/16 08:21> Review of Systems - Review of Systems Constitutional: Recent illness. denies: Fever EENT: No symptoms reported Cardiovascular: No symptoms reported Respiratory: No symptoms reported Gastrointestinal: Abdominal pain, Diarrhea, Nausea, Vomiting Genitourinary: No symptoms reported Female Genitourinary: No symptoms reported Musculoskeletal: No symptoms reported Skin: No symptoms reported Hematologic/Lymphatic: No symptoms reported Neurological/Psychological: Tremor -: Yes All other systems reviewed and negative <JORGE LOVE - Last Filed: 12/28/16 08:21> Physical Exam - Vital signs Interpretation: Normal - General General appearance: Appears well, Alert - HEENT Head: Normocephalic, Atraumatic Eyes: Normal Pupils: PERRL - Respiratory Respiratory status: No respiratory distress Chest status: Nontender Breath sounds: Normal Chest palpation: Normal - Cardiovascular Rhythm: Regular Heart sounds: Normal auscultation Murmur: No - Abdominal Inspection: Normal Distension: No distension Bowel sounds: Hyperactive Tenderness: Tender - left and right upper abdomen and left lower abdomen which is chronic Organomegaly: No organomegaly - Back Back: Normal, Nontender - Extremities General upper extremity: Normal inspection, Nontender, Normal color, Normal ROM , Normal temperature General lower extremity: Normal inspection, Nontender, Normal color, Normal ROM , Normal temperature, Normal weight bearing. No: Kwan's sign - Neurological Neuro grossly intact: Yes Cognition: Normal Orientation: AAOx4 [place] Coma Scale Eye Opening: Spontaneous [place] Coma Scale Verbal: Oriented [place] Coma Scale Motor: Obeys Commands [place] Coma Scale Total: 15 Speech: Normal Motor strength normal: LUE, RUE, LLE, RLE Sensory: Normal - Psychological Associated symptoms: Anxious - Skin Skin Temperature: Warm Skin Moisture: Dry Skin Color: Normal <JORGE LOVE - Last Filed: 12/28/16 08:21> Course - Laboratory Result Diagrams: 12/28/16 04:35 12/28/16 04:35 <JORGE LOVE - Last Filed: 12/28/16 08:21> - Laboratory Result Diagrams: 12/28/16 04:35 12/28/16 04:35 <KANU OMER - Last Filed: 12/28/16 14:14> - Re-evaluation Re-evalutation: 12/28/16 08:[address] Castillo for admission due to intractable nausea and vomiting. Dr. harley was requested that a drug screen be done as well as to continue IV fluids at 150 cc an hour which has been started she also requested that patient be given a milligram of Ativan and then to call her back. Ativan ordered patient also states she had a headache still so Toradol was ordered. Normal saline at 150 cc was started. Patient is already had 3 L of normal saline as a bolus. Report was given at bedside to Kanu STRICKLAND. She will follow up with the results of these tests and the medication and recontact Dr. Castillo if the patient is still having intractable vomiting.consulted Dr. young concerning this patient continued nausea and dry heaves. He suggested Haldol 5 mg IV which will be ordered. (JORGE LOVE) 12/28/16 11:12 Pt has not actually vomited the entire time here in the emergency department. haldol, ativan, phenergan rectal have all helped her "dry heaving" but pt is very anxious and "does not want to go home." she is not stating that it feels like "something is stuck" in her throat." She is able to sip liliana patti and keep it down. She has been here over 6 hours with no actual vomiting. Dr. Castillo and I agree pt stable to go home with stable vital signs and now working on her liter of fluid. (KANU OMER) - Vital Signs Vital signs: Temp Pulse Resp BP Pulse Ox 99.0 F 105 H 20 147/79 H 95 12/28/16 13:39 12/28/16 12:00 12/28/16 07:25 12/28/16 12:00 12/28/16 12:00 - Laboratory Laboratory results interpreted by me: 12/28/16 12/28/16 12/28/16 04:35 04:35 04:35 WBC 10.9 H RDW 14.6 H Absolute Neutrophils 8.5 H Sodium 145.4 H Chloride 109 H Carbon Dioxide 18 L AST 39 H Urine Protein Urine Ketones Acetaminophen < 10 L 12/28/16 06:34 WBC RDW Absolute Neutrophils Sodium Chloride Carbon Dioxide AST Urine Protein 30 H Urine Ketones 20 H Acetaminophen Discharge <JORGE LOVE - Last Filed: 12/28/16 08:21> <KANU OMER - Last Filed: 12/28/16 14:14> - Discharge Clinical Impression: Nausea Abdominal pain Qualifiers: Abdominal location: generalized Qualified Code(s): R10.84 - Generalized abdominal pain Condition: Stable Disposition: HOME, SELF-CARE Additional Instructions: Return immediately for any new or worsening symptoms. Follow up with primary care provider, call tomorrow to make followup appointment. Prescriptions: Metoclopramide HCl [Reglan 10 mg Tablet] 1 - 2 tab PO Q4 #25 tablet Ondansetron [Zofran Odt 4 mg Tablet] 1 - 2 tab PO Q4H PRN #15 tab.rapdis PRN Reason: For Nausea/Vomiting Promethazine HCl [Phenergan 25 mg Supp.rect] 1 supp SD Q6H #12 supp.rect
[2016-12-28 05:09] LABS: ALANINE AMINOTRANSFERASE 45 U/L (9-52); ALBUMIN 4.2 g/dL (3.5-5.0); ALKALINE PHOSPHATASE 88 U/L (38-126); ANION GAP 18 (5-19); ASPARTATE AMINO TRANSFERASE 39 U/L (14-36); BILIRUBIN,DIRECT 0.4 mg/dL (0.0-0.4); BILIRUBIN,TOTAL 0.6 mg/dL (0.2-1.3); BLOOD UREA NITROGEN 19 mg/dL (7-20); CALCIUM 9.1 mg/dL (8.4-10.2); CARBON DIOXIDE 18 mmol/L (22-30); CHLORIDE 109 mmol/L (98-107); GLUCOSE 97 mg/dL (75-110); LIPASE 89.5 U/L (23-300); POTASSIUM 4.1 mmol/L (3.6-5.0); SODIUM 145.4 mmol/L (137-145); TOTAL PROTEIN 7.2 g/dL (6.3-8.2)
[2016-12-28] MEDS ORDERED: PROMETHAZINE HCL 25 MG TABLET PO ONE (05:46)
[2016-12-28] MEDS ORDERED: NORMAL SALINE 1000 ML 1,000 ML IV PRN ×2 (05:46→08:10)
[2016-12-28 07:02] LABS: APPEARANCE,URINE SLIGHTLY-CLOUDY; BILIRUBIN,URINE NEGATIVE (NEGATIVE); GLUCOSE, URINE NEGATIVE (NEGATIVE); KETONES,URINE 20 mg/dL (NEGATIVE); LEUKOCYTE ESTERASE,URINE NEGATIVE (NEGATIVE); NITRITE,URINE NEGATIVE (NEGATIVE); PROTEIN,URINE 30 mg/dL (NEGATIVE); URINE SPECIFIC GRAVITY 1.027; UROBILINOGEN,URINE NEGATIVE mg/dL (<2.0)
[2016-12-28] MEDS ORDERED: KETOROLAC TROMETHAMINE INJ/PF 30 MG/1 ML SDV IV ONE (08:18)
[2016-12-28] MEDS ORDERED: LORAZEPAM 1 MG TABLET PO ONE (08:18)
[2016-12-28] MEDS ORDERED: HALOPERIDOL LACTATE INJ 5 MG/1 ML VIAL IV ONE (08:26)
[2016-12-28 08:50] LABS: URINE BARBITURATES SCREEN NEGATIVE; URINE METHADONE SCREEN NEGATIVE; URINE OPIATES LOW UNCONFIRMED POSITIVE; URINE PHENCYCLIDINE SCREEN NEGATIVE
[2016-12-28] MEDS ORDERED: PROMETHAZINE HCL 25 MG SUPP.RECT PR ONE (10:08)
[2016-12-28 12:02] VITALS: BP 147/79
--- NOTE | 2016-12-28 13:55 | RADIOLOGY REPORT (SQ) ---
EXAM DESCRIPTION: CT ABD/PELVIS WITH IV ORAL COMPLETED DATE/TIME: 12/28/2016 1:29 pm REASON FOR STUDY: abd pain, wretching COMPARISON: 11/29/2016 and 01/23/2016. TECHNIQUE: CT scan of the abdomen and pelvis performed using helical scanning technique with dynamic intravenous contrast injection. No oral contrast. Images reviewed with lung, soft tissue, and bone windows. Reconstructed coronal and sagittal MPR images reviewed. Delayed images for evaluation of the urinary system also acquired. All images stored on PACS. All CT scanners at this facility use dose modulation, iterative reconstruction, and/or weight based d osing when appropriate to reduce radiation dose to as low as reasonably achievable (ALARA). [facility]: Dose Right [facility]: CareDose [facility]: Dose Right [facility]: Teradose 4D [facility]: Tangerine Power CONTRAST TYPE AND DOSE: contrast/concentration: Isovue 370.00 mg/ml; Total Contrast Delivered: 80.0 ml; Total Saline Delivered: 72.0 ml RENAL FUNCTION: BUN 19 creatinine 0.6. RADIATION DOSE: Up-to-date CT equipment and radiation dose reduction techniques were employed. CTDIv ol: 13.9 - 16.0 mGy. DLP: 1584 mGy-cm.. LIMITATIONS: None. FINDINGS: LOWER CHEST: No significant findings. No nodules or infiltrates. LIVER: Normal size. Diffuse fatty infiltration. No masses. No dilated ducts. SPLEEN: Normal size. No focal lesions. PANCREAS: No masses. No significant calcifications. No adjacent inflammation or peripancreatic fluid collections. Pancreatic duct not dilated. GALLBLADDER: No identified stones by CT criteria. No inflammatory changes to suggest cholecystitis. ADRENAL GLANDS: No significant masses or asymmetry. RIGHT KIDNEY AND URETER: No solid masses. No significant calcifications. No hydronephrosis or hyd roureter. LEFT KIDNEY AND URETER: Small subcentimeter cyst. No solid masses. No significant calcifications. No hydronephrosis or hydroureter. AORTA AND VESSELS: No aneurysm. No dissection. Renal arteries, SMA, celiac without stenosis. RETROPERITONEUM: No retroperitoneal adenopathy, hemorrhage or masses. BOWEL AND PERITONEAL CAVITY: No masses or inflammatory changes. No free fluid or peritoneal masses. APPENDIX: Surgically absent. PELVIS: No mass. No free fluid. Normal bladder. ABDOMINAL WALL: No masses. No hernias. BONES: No significant or acute findings. Degenerative changes in the spine. OTHER: No other significant finding. IMPRESSION: FATTY INFILTRATION OF THE LIVER. SMALL SUBCENTIMETER CYST IN THE LEFT KIDNEY. OTHERWIS E NO SIGNIFICANT OR ACUTE FINDING IN THE ABDOMEN OR PELVIS ON CT SCAN WITH IV CONTRAST. TECHNICAL DOCUMENTATION: JOB ID: [id number] Quality ID # [id number]: Final reports with documentation of one or more dose reduction techniques (e.g., Au tomated exposure control, adjustment of the mA and/or kV according to patient size, use of iterative reconstruction technique) 2010 [employer]- All Rights Reserved
== END 2016-12-28 15:20 | disposition home or self-care (01) ==
LOC: ER 03:45
DX: R11.2 Nausea with vomiting, unspecified (principal); K21.9 Gastro-esophageal reflux disease without esophagitis; R10.84 Generalized abdominal pain; R19.7 Diarrhea, unspecified; R25.1 Tremor, unspecified; R09.89 Other specified symptoms and signs involving the circulatory and respiratory systems; R51 Headache; F41.9 Anxiety disorder, unspecified; F31.9 Bipolar disorder, unspecified; M54.9 Dorsalgia, unspecified; G89.29 Other chronic pain; M19.90 Unspecified osteoarthritis, unspecified site; Z98.1 Arthrodesis status; Z79.891 Long term (current) use of opiate analgesic; Z79.1 Long term (current) use of non-steroidal anti-inflammatories (NSAID); Z79.899 Other long term (current) drug therapy
CPT/HCPCS: 99284; 96361; 96374; 96375; 36415; 83690; 80307 ×2; 85025; 80053; 81001; 74177; J1200; J1630; J1885; A9270 ×3; J2405; J7030; J3490

== ENCOUNTER 2018-11-21 08:04 | Day surgery (SDC) | payer MEDICARE ==
[~2018-11-21 08:04] MED LIST: BUPIVACAINE HCL 0.75% INJ/PF (7.5 MG/1 ML) 10 ML SDV OD PRN; CHONDR SU A NA/HYALUR INTRAOC KIT (SURGICARE) ONE; EPINEPHRINE INJ/PF 1 MG/1 ML AMPULE ONE; KETOROLAC TROMETHAMINE 0.45% 4 DROP/0.4 ML DROPERETTE OD PRN; LIDOCAINE 1% INJ-PF (10 MG/ML) 30 ML SDV ONE; LIDOCAINE 4% INJ/PF (40 MG/ML) 5 ML AMPUL OD PRN
[2018-11-21] MEDS: TETRACAINE HCL 0.5% OPH SOLN 0.6 ML DROPERETTE OD PRN ×2 (08:41→09:09)
[2018-11-21] MEDS: BESIFLOXACIN HCL 0.6% OPH SUSP 5 ML BOTTLE OD PRN ×4 (08:42→09:51)
[2018-11-21] MEDS: TROPICAMIDE 1% OPH SOLN 3 ML OD PRN ×3 (08:42→09:08)
[2018-11-21] MEDS: CYCLOPENTOLATE 0.2%/PHENYLEPHRINE 1% OPH SOLN 2 ML OD PRN ×3 (08:42→09:08)
[2018-11-21] MEDS ORDERED: MIDAZOLAM 2 MG/2 ML INJ ONE (08:55)
[2018-11-21] MEDS: DORZOLAMIDE HCL 2%/TIMOLOL MALEAT 0.5% OPH SOLN 10 ML OD PRN ×2 (09:51)
--- NOTE | 2018-11-21 11:49 | [facility] DISCHARGE SUMMARY E ---
[facility] Discharge Summary NAME: TELLO KAHN AGE: 63Y ADMITTED: 11/21/2018 DISCHARGED: 11/21/2018 HOSPITAL COURSE: The patient is a 63-year-old lady who underwent uneventful cataract extraction with Symfony Toric intraocular lens implant right eye on 11/21/2018. She will be discharged to home. She is instructed to resume preoperative medications, to take Tylenol as needed for discomfort, to keep her eye shielded, to use Durezol, Ilevro, and moxifloxacin at 3 p.m. and 8 p.m., and to follow up in my office in 1 day. DICTATING PHYSICIAN: AMY PACE M.D. [id number] PHY#: [id number] ID: [id number] JOB#: [id number] ACCT: [id number] cc:AMY PACE M.D. > MTDD
--- NOTE | 2018-11-21 11:49 | [facility] OPERATIVE REPORT E ---
[facility] Operative Report NAME: TELLO KAHN AGE: 63Y DATE OF SURGERY: 11/21/2018 ROOM: PREOPERATIVE DIAGNOSIS: Cataract, right eye. POSTOPERATIVE DIAGNOSIS: Cataract, right eye. PROCEDURE PERFORMED: Phacoemulsification with Symfony Toric intraocular lens implant, right eye. SURGEON: AMY PACE M.D. ANESTHESIA: Topical with MAC. INDICATIONS FOR SURGERY: Difficulty with night driving. PROCEDURE: The patient was brought to the Operating Room and placed on the operative table. Following tetracaine drops, topical anesthesia was administered. This consisted of instrument wipe pledgets soaked in a solution of 4% Xylocaine mixed with 0.75% Marcaine in a 1:2 ratio. A 2 x 1 cm pledget was placed in the superior fornix. A 1 x 1 cm pledget was placed in the inferior fornix. The eye was patched shut for 5 minutes. The patch was removed. The eye was sterilely prepped and draped in the usual manner. Lid speculum was placed in the eye. The pledgets were removed. 4-0 black silk sutures were placed around the superior and the inferior rectus muscles to be used as traction. A conjunctival peritomy was made at the 10 o'clock position. Hemostasis was obtained with bipolar cautery. A posterior limbal groove was created using a crescent knife and dissected anteriorly towards the cornea. A sharp point blade was used to create a paracentesis site at the 2 o'clock position. A 2.4 mm keratome was used to enter the anterior chamber through the groove. Viscoelastic was injected into the anterior chamber. An anterior capsulotomy was performed using Utrata forceps in a capsulorrhexis fashion. Hydrodissection and hydrodelineation were performed. Phacoemulsification was performed in alrzmg-frm-[id number] technique. A total of 3.94 CDE phaco time was used. Following this, the I/A unit was used to remove residual cortex. Viscoelastic was injected into the capsular bag. Intraocular lens model [id number], 23.5 diopters, serial number [id number] was placed in the capsular bag. The I/A unit was used to remove residual viscoelastic. The wound was seen to be watertight under high and low pressure, and no sutures were placed. The intraocular lens was well centered. The pressure was adjusted in the eye to normal pressure. The 4-0 black silk sutures and lid speculum were removed. The eye was shielded after Besivance drops were placed. The patient tolerated the procedure well and was sent to the Recovery Room in good condition. Prior to the surgery, the patient was placed in the seating position and the 0, 270, and 180 degree axis of the eye was marked using a marking level. Prior to placing the lens implant, the 5-degree axis was marked on the eye and the lens was centered at this axis. A drop of Cosopt was placed in the eye at the end of the surgery. DICTATING PHYSICIAN: AMY PACE M.D. [id number] PHY#: [id number] ID: [id number] JOB#: [id number] ACCT: [id number] cc:AMY PACE M.D. > MTDD
== END 2018-11-21 10:29 | disposition home or self-care (01) ==
LOC: SC 08:04
PROVIDERS: ATTEND Ophthalmology
DX: H25.811 Combined forms of age-related cataract, right eye (principal)
CPT/HCPCS: 66984; 00142; V2788; J2250; J3490 ×4; A9270; J0171; 142

== ENCOUNTER 2019-06-07 03:11 | Emergency (ER) | payer MEDICARE ==
[2019-06-07] MEDS ORDERED: NORMAL SALINE 1000 ML 1,000 ML IV ONE ×2 (03:47→07:06)
[2019-06-07] MEDS ORDERED: LORAZEPAM INJ 2 MG/1 ML VIAL IV ONE ×2 (03:47→04:54)
[2019-06-07] MEDS ORDERED: CLONIDINE HCL 0.1 MG TABLET PO ONE ×2 (03:48→04:55)
--- NOTE | 2019-06-07 03:50 | ER Document Report ---
ED General - General Chief Complaint: Accidental Overdose Stated Complaint: OVERDOSE AND WITHDRAWAL Time Seen by Provider: 06/07/19 03:43 Primary Care Provider: ERASMO LOPEZ MD [Primary Care Provider] - Follow up as needed Notes: Patient is a 63-year-old female that comes emergency department for chief compla int of accidental overdose. She states that she accidentally took 2 of her nighttime doses of Seroquel because she forgot she took the initial dose, she states she started feeling jittery, became concerned, gave herself a dose of Narcan. She is on chronic pain management and has a fentanyl patch. She states after she took the Narcan she felt terrible, started sweating, became extremely jittery and could not hold still. She denies vomiting, difficulty breathing, passing out, fever. Past medical history of fibromyalgia, degenerative disc disease, anxiety/depression. She denies medical history otherwise. She denies alcohol or recreational drugs. She denies suicidal ideations or plan. TRAVEL OUTSIDE OF THE [place] IN LAST 30 DAYS: Yes - Related Data Allergies/Adverse Reactions: ondansetron [From Zofran] Allergy (Verified 11/17/18 14:16) "SKIN WAS CRAWLING" prednisone Allergy (Verified 11/17/18 14:16) "SKIN WAS CRAWLING" morphine Adverse Reaction (Verified 11/17/18 14:16) Home Medications: Naloxone. Percocet. Fentanyl Patches Past Medical History - General Information source: Patient - Social History Smoking Status: Never Smoker Frequency of alcohol use: None Lives with: Family Family History: Hypertension Patient has suicidal ideation: No Patient has homicidal ideation: No - Past Medical History Cardiac Medical History: Denies: Hx Heart Attack, Hx Hypertension Pulmonary Medical History: Denies: Hx Asthma Neurological Medical History: Denies: Hx Cerebrovascular Accident, Hx Seizures GI Medical History: Reports: Hx Gastroesophageal Reflux Disease, Hx Colonoscopy. Denies: Hx Hepatitis, Hx Hiatal Hernia, Hx Ulcer Musculoskeletal Medical History: Reports Hx Arthritis - Chronic back pain, Reports Hx Fibromyalgia, Reports Hx Musculoskeletal Deformity, Reports Hx Musculoskeletal Trauma Psychiatric Medical History: Reports: Hx Anxiety, Hx Bipolar Disorder, Hx Depression Infectious Medical History: Denies: Hx Hepatitis Past Surgical History: Reports: Hx Section - x2, Hx Orthopedic Surgery - cervical fusion. Denies: Hx Mastectomy, Hx Open Heart Surgery, Hx Pacemaker - Immunizations Hx Diphtheria, Pertussis, Tetanus Vaccination: Yes Review of Systems - Review of Systems Constitutional: See HPI EENT: No symptoms reported Cardiovascular: No symptoms reported Respiratory: No symptoms reported Gastrointestinal: No symptoms reported Genitourinary: No symptoms reported Female Genitourinary: No symptoms reported Musculoskeletal: No symptoms reported Skin: No symptoms reported Hematologic/Lymphatic: No symptoms reported Neurological/Psychological: See HPI Physical Exam - Vital signs Vitals: Resp 31 H 06/07/19 03:18 - Notes Notes: GENERAL: Alert, interactive, extremely restless HEAD: Normocephalic, atraumatic. EYES: Pupils equal, round somewhat dilated, and reactive to light. Extraocular movements intact. ENT: Oral mucosa dry, tongue midline. Oropharynx unremarkable. Airway patent. NECK: Full range of motion. Supple. Trachea midline. LUNGS: Clear to auscultation bilaterally, no wheezes, rales, or rhonchi. No respiratory distress. HEART: Tachycardia, normal rhythm, no murmur ABDOMEN: Soft, non-tender. Non-distended. EXTREMITIES: Moves all 4 extremities spontaneously. No edema, normal radial and dorsalis pedis pulses bilaterally. No cyanosis. BACK: no cervical, thoracic, lumbar midline tenderness. No saddle anesthesia, n ormal distal neurovascular exam. Moves all extremities in full range of motion. NEUROLOGICAL: Alert and oriented x3. Normal speech. Cranial nerves II through XII grossly intact. PSYCH: Extremely restless and cannot hold still, still cooperative SKIN: Warm, dry, normal turgor. No rashes or lesions noted. Course - Re-evaluation Re-evalutation: Patient very restless, diaphoretic, tachycardic, hypertensive. I suspect she is withdrawing acutely from opiates because of her Narcan. She only took a double dose of her Seroquel so I do not feel this is a concerning dose in regards to her symptoms, patient reports this was accidental and she denies SI or HI. Physical examination otherwise unremarkable with clear lungs, soft abdomen. I discussed patient with Dr. Palacios. Patient was given clonidine, Ativan, she will be given Vistaril and IV fluids. He has no other recommendations at this time. EMS had contacted poison control and they contacted us. The only recommendation they have is if clonidine, benzos, IV fluids did not help that patient can be given some opioids to help with her symptoms. Patient is improved after clonidine, Ativan, Vistaril, IV fluids but she still is very restless and she is tachycardic. Giving fentanyl, initially I thought she had a fentanyl patch on but this was found to be in the bed and it came off at some point when she got here. Patient is improving, patient was not hypotensive anymore and much improved when she received fentanyl, after the fentanyl she became much more relaxed but she was still tachycardic, after additional IV fluids tachycardia completely resolved. Patient will be observed until we are sure that she is ready to go home. Patient and friend at bedside state agreement. 06/07/19 08:06 Patient has had resolution of her tachycardia, she is calm, sleeping, easily aroused. She is somewhat groggy and is a little bit too drowsy to safely walk, she will be allowed to recover for a longer period of time. I did discuss her work-up, her overall visit, and discussed recommendations, follow-up, return precautions. Patient states appreciation and agreement. Patient will be monitored until she is more alert and can be safely discharged home. - Vital Signs Vital signs: Temp Pulse Resp BP Pulse Ox 98.7 F 132 H 20 119/76 94 06/07/19 06:15 06/07/19 06:09 06/07/19 07:01 06/07/19 07:01 06/07/19 07:01 - Laboratory Result Diagrams: 06/07/19 04:19 06/07/19 06:26 Laboratory results interpreted by me: 06/07/19 06/07/19 05:05 06:26 Chloride 111 H Glucose 122 H Urine Protein 30 H Urine Ketones 20 H Ur Leukocyte Esterase SMALL H Acetaminophen < 10 L - EKG Interpretation by Me Additional EKG results interpreted by me: EKG shows sinus tachycardia at a rate of 121. QTC of 349, no T wave inversions or ST segment changes in consecutive leads. Discharge - Discharge Clinical Impression: Opiate withdrawal Accidental overdose Qualifiers: Encounter type: initial encounter Qualified Code(s): T50.901A - Poisoning by unspecified drugs, medicaments and biological substances, accidental (unintentional), initial encounter Condition: Stable Disposition: HOME, SELF-CARE Additional Instructions: You experienced sudden opiate withdrawal because of the Narcan you used. Resume your normal opiates, you have been treated past this this morning. Avoiding taking any medications except for as specifically prescribed. Follow-up close with your primary care. Return for any concerning symptoms including vomiting, difficulty breathing, or if something is not right. Referrals: ERASMO LOPEZ MD [Primary Care Provider] - Follow up as needed
[2019-06-07 04:31] LABS: ABSOLUTE BASOPHILS # (AUTO) 0.1 10^3/uL (0.0-0.2); ABSOLUTE EOSINOPHILS # (AUTO) 0.2 10^3/uL (0.0-0.6); ABSOLUTE LYMPHOCYTES (AUTO) 1.2 10^3/uL (0.5-4.7); ABSOLUTE MONOCYTES (AUTO) 0.7 10^3/uL (0.1-1.4); ABSOLUTE NEUT (AUTO) 6.8 10^3/uL (1.7-8.2); BASOPHILS % (AUTO) 0.6 % (0-2); EOSINOPHILS % (AUTO) 1.9 % (0-6); HEMATOCRIT 40.6 % (36.0-47.0); HEMOGLOBIN 14.1 g/dL (12.0-15.5); LYMPHOCYTES % (AUTO) 13.5 % (13-45); MEAN CORPUSCULAR HEMOGLOBIN 29.8 pg (27.0-33.4); MEAN CORPUSCULAR HGB CONC 34.9 g/dL (32.0-36.0); MEAN CORPUSCULAR VOLUME 86 fl (80-97); MONOCYTES % (AUTO) 8.3 % (3-13); PLATELET COUNT 184 10^3/uL (150-450); RED BLOOD COUNT 4.74 10^6/uL (3.72-5.28); RED CELL DISTRIBUTION WIDTH 13.5 % (11.5-14.0); SEGMENTED NEUTROPHILS % (AUTO) 75.7 % (42-78); TOTAL CELLS COUNTED % (AUTO) 100 %; WHITE BLOOD COUNT 8.9 10^3/uL (4.0-10.5)
[2019-06-07] MEDS ORDERED: HYDROXYZINE HCL INJ 50 MG/1 ML VIAL IM ONE (04:54)
[2019-06-07 05:33] LABS: APPEARANCE,URINE SLIGHTLY-CLOUDY; BILIRUBIN,URINE NEGATIVE (NEGATIVE); COLOR,URINE YELLOW; GLUCOSE, URINE NEGATIVE (NEGATIVE); KETONES,URINE 20 mg/dL (NEGATIVE); LEUKOCYTE ESTERASE,URINE SMALL (NEGATIVE); NITRITE,URINE NEGATIVE (NEGATIVE); PROTEIN,URINE 30 mg/dL (NEGATIVE); URINE SPECIFIC GRAVITY 1.023; UROBILINOGEN,URINE NEGATIVE mg/dL (<2.0)
[2019-06-07 05:41] LABS: URINE AMPHETAMINES SCREEN NEGATIVE; URINE BARBITURATES SCREEN NEGATIVE; URINE BENZODIAZEPINES SCREEN NEGATIVE; URINE COCAINE SCREEN NEGATIVE; URINE MARIJUANA (THC) SCREEN NEGATIVE; URINE METHADONE SCREEN NEGATIVE; URINE PHENCYCLIDINE SCREEN NEGATIVE
[2019-06-07] MEDS ORDERED: FENTANYL CITRATE INJ/PF 100 MCG/2 ML AMPUL IV ONE ×2 (06:13→06:14)
[2019-06-07 07:12] LABS: ALBUMIN 3.7 g/dL (3.5-5.0); ALKALINE PHOSPHATASE 81 U/L (38-126); ANION GAP 8 (5-19); ASPARTATE AMINO TRANSFERASE 28 U/L (14-36); BILIRUBIN,DIRECT 0.2 mg/dL (0.0-0.4); BILIRUBIN,TOTAL 0.8 mg/dL (0.2-1.3); BLOOD UREA NITROGEN 18 mg/dL (7-20); CALCIUM 8.8 mg/dL (8.4-10.2); CARBON DIOXIDE 25 mmol/L (22-30); CHLORIDE 111 mmol/L (98-107); GLUCOSE 122 mg/dL (75-110); POTASSIUM 3.7 mmol/L (3.6-5.0); SALICYLATE 4.3 mg/dL (2.0-20.0); TOTAL PROTEIN 6.4 g/dL (6.3-8.2)
[2019-06-07 07:14] LABS: ACETAMINOPHEN < 10 ug/mL (10-30); ALCOHOL < 10 mg/dL (NONE DETECTED)
[2019-06-07 09:06] VITALS: BP 96/56
--- NOTE | 2019-06-07 09:31 | EKG REPORT ---
SEVERITY:- BORDERLINE ECG - SINUS TACHYCARDIA BORDERLINE RIGHT AXIS DEVIATION BORDERLINE T ABNORMALITIES, ANTERIOR LEADS : Confirmed by: Mamadou Dupree 07-Jun-2019 09:31:06
== END 2019-06-07 09:20 | disposition home or self-care (01) ==
LOC: ER 03:11
DX: T43.591A Poisoning by other antipsychotics and neuroleptics, accidental (unintentional), initial encounter (principal); F11.23 Opioid dependence with withdrawal; Y92.009 Unspecified place in unspecified non-institutional (private) residence as the place of occurrence of the external cause; G89.29 Other chronic pain; Z88.6 Allergy status to analgesic agent; Z98.1 Arthrodesis status
CPT/HCPCS: 93005; 96376; 99284; 96372; 96361; 96374; 96375; 36415; 87086; 80307 ×4; 82550; 85025; 80053; 81001; 93010; A9270; J3010; J3410; J2060; J7030